=== PATIENT | male | born 1940 | race Caucasian/White ===

== ENCOUNTER 2019-07-16 10:40 | Inpatient (IN) | payer OTHER ==
--- NOTE | 2019-07-16 10:50 | ED ---
HPI Cardiac - HPI Summary HPI Summary: This patient is an 79 year old male brought in by EMS presenting to [facility] with a chief complaint of weakness. He reports intermittent chest pain, SOB, N/V, and chest congestion. He states his balance has been off. He denies any chest pain today. He states he's been non-compliant with his medications. He states he has had multiple deaths in the family and is currently having a difficult time dealing with this. He states he has not had an appetite. Pt denies any fever, chills, erythema of eyes, sore throat, cough, abdominal pain, dysuria, hematuria, myalgia, edema, rash, or dizziness. Aspirin 81 mg CHEW TAB* 81 mg PO DAILY 04/05/16 [History Confirmed 04/05/16] Cyanocobalamin TAB* [Vitamin B12 TAB*] 1,000 mcg PO DAILY 04/05/16 [History Confirmed 04/05/16] Metoprolol Succinate XL TAB* [Toprol XL TAB*] 1.5 tab PO DAILY 04/05/16 [ History Confirmed 04/05/16] Simvastatin [Zocor 40 MG (NF)] 40 mg PO BEDTIME 04/05/16 [History Confirmed 08/11] Spironolactone TAB* [Aldactone TAB 25 MG*] 25 mg PO DAILY 04/05/16 [History Confirmed 04/05/16] amLODIPine TAB* [Norvasc 5 mg TAB*] 10 mg PO DAILY 04/05/16 [History Confirmed 04/05/16] Docusate CAP* [Colace Cap*] 200 mg PO BID cap 04/07/16 [Rx] HYDROcodone/ACETAMIN 5-325 MG* [[place] 5-325 TAB*] 1 tab PO Q6H PRN #20 tab MDD 4 04/07/16 [Rx] Omeprazole CAP (NF) [Prilosec CAP* 20 MG] 20 mg PO DAILY #30 04/07/16 [Rx ] Ramipril CAP* [Altace CAP*] 10 mg PO DAILY #30 cap 04/07/16 [Rx] - History of Current Complaint Stated Complaint: WEAKNESS PER EMS Time Seen by Provider: 07/16/19 10:42 Hx Obtained From: Patient Onset/Duration: Started Days Ago Associated Signs and Symptoms: Positive: Chest Pain, Recent Stress, Weakness, Shortness of Breath, Nausea, Vomiting - Additional Pertinent History Primary Care Physician: [id number] - Allergy/Home Medications Allergies/Adverse Reactions: Allergies Allergy/AdvReac Type Severity Reaction Status Date / Time No Known Allergies Allergy Verified 04/05/16 04:17 Home Medications: Home Medications Atorvastatin Calcium [Lipitor] 80 mg PO DAILY 07/16/19 [History Confirmed ] Ipratropium Br (Nf)0.03% Nasal [Ipratropium [place]] 2 spray BOTH NARES BID [History Confirmed 07/16/19] Ramipril CAP* [Altace CAP*] 20 mg PO DAILY 07/16/19 [History Confirmed 07/16/19] Torsemide TAB* [Demadex*] 10 mg PO DAILY 07/16/19 [History Confirmed 07/16/19] PMH/Surg Hx/FS Hx/Imm Hx Cardiovascular History: Reports: Hx Congestive Heart Failure, Hx Hypertension Denies: Hx Pacemaker/ICD Respiratory History: Reports: Hx Chronic Obstructive Pulmonary Disease (COPD) History: Reports: Hx Kidney Stones, Other Problems/Disorders - Kidney stones Sensory History: Reports: Hx Contacts or Glasses Denies: Hx Hearing Aid Opthamlomology History: Reports: Hx Contacts or Glasses Psychiatric History: Denies: Hx Panic Disorder - Family History Known Family History: Negative: Seizure Disorder - Social History Alcohol Use: Occasionally Substance Use Type: Reports: None Smoking Status (MU): Former Smoker Type: Cigarettes Review of Systems Negative: Fever, Chills Negative: Erythema Negative: Sore Throat Positive: Chest Pain Positive: Shortness Of Breath. Negative: Cough Positive: Vomiting, Nausea. Negative: Abdominal Pain Negative: dysuria, hematuria Negative: Myalgia, Edema Negative: Rash Neurological: Other - Loss of balance Neg: Dizzness Positive: Weakness Positive: Depressed - Grief All Other Systems Reviewed And Are Negative: No Physical Exam - Summary Physical Exam Summary: Constitutional: Well-developed, Well-nourished, Alert. (-) Distressed Skin: Warm, Dry HENT: Normocephalic; Atraumatic Eyes: Conjunctiva normal Neck: Musculoskeletal ROM normal neck. (-) JVD, (-) Stridor, (-) Tracheal deviation Cardio: Rhythm regular, rate normal, Heart sounds normal; Intact distal pulses; The pedal pulses are 2+ and symmetric. Radial pulses are 2+ and symmetric. (-) Murmur Pulmonary/Chest wall: Effort normal. (-) Respiratory distress, (-) Wheezes, (-) Rales Abd: Soft, (-) tenderness, (-) Distension, (-) Guarding, (-) Rebound Musculoskeletal: (-) Edema Lymph: (-) Cervical adenopathy Neuro: Alert, Oriented x3, Strength normal, Cranial nerves II-XII are grossly intact. (-) Dysmetria, (-) Nystagmus, (-) Ataxia by finger to nose testing, (-) Sensory deficit. Psych: Mood and affect Normal Triage Information Reviewed: Yes Vital Signs On Initial Exam: Temp Pulse Resp BP Pulse Ox 97.8 F 93 16 112/84 94 07/16/19 10:42 07/16/19 10:49 07/16/19 10:42 07/16/19 10:42 07/16/19 10:49 Vital Signs Reviewed: Yes Diagnostics - Laboratory Result Diagrams: 07/16/19 11:10 07/16/19 11:10 Lab Statement: Any lab studies that have been ordered have been reviewed, and results considered in the medical decision making process. - Radiology CXR Radiology Interpretation Completed By: Radiologist Summary of Radiographic Findings: No active cardiopulmonary disease is noted. ED Provider has reviewed this report. - CT Brain CT Interpretation Completed By: Radiologist Summary of CT Findings: No evidence for acute intracranial abnormality. ED Provider has reviewed this report. - EKG 1041 Cardiac Rate: NL EKG Rhythm: Sinus Rhythm - 96 BPM Summary of EKG Findings: LBBB Disposition - Course Course Of Treatment: This patient is an 79 year old male presenting to [facility] with a chief complaint of weakness. First Troponin was 0.07. Sodium is 118 L, CO2 is 12L. Discussed possibility of posterior circulation stroke with the Hospitalist, but decided it is more likely the symptoms are caused by hyponatremia. Dr. Lara, Assistant Professor Of Chemistry, was in the operationing room so she could not answer her pager but she eventually accepted the patient for admission. This plan was discussed with the patient and he was agreeable with this plan. - Diagnoses Provider Diagnoses: Hyponatremia, Acute renal failure Discharge ED - Sign-Out/Discharge Documenting (check all that apply): Patient Departure - Admission Patient Received Moderate/Deep Sedation with Procedure: No - Discharge Plan Condition: Stable Disposition: ADMITTED TO [facility] Referrals: France Block MD [Primary Care Provider] - - Attestation Statements Document Initiated by Scribe: Yes Documenting Scribe: True Loom[place] Provider For Whom Scribe is Documenting (Include Credential): Ad Perez MD Scribe Attestation: True Osuna, scribed for Ad Perez MD on 07/16/19 at 1316. Status of Scribe Document: Ready
[2019-07-16 11:17] LABS: Hematocrit 41 % (42-52); Hemoglobin 13.7 g/dL (14.0-18.0); Mean Corpuscular HGB Conc 33 g/dL (31-36); Mean Corpuscular Hemoglobin 30 pg (27-31); Mean Corpuscular Volume 89 fL (80-94); Mean Platelet Volume 8.6 fL (7.4-10.4); Platelet Count 671 10^3/uL (150-450); Red Blood Count 4.64 10^6 /uL (4.18-5.48); Red Cell Distribution Width 15 % (10-15); White Blood Count 16.3 10^3/uL (3.5-10.8)
[2019-07-16 11:49] LABS: Troponin I 0.07 ng/mL (<0.04)
[2019-07-16 11:51] LABS: ALT 17 U/L (7-52); AST 12 U/L (13-39); Albumin 3.8 g/dL (3.2-5.2); Alkaline Phosphatase 130 U/L (34-104); Calcium 8.9 mg/dL (8.6-10.3); Chloride 89 mmol/L (101-111); EGFR African American 18.7 (>60); EGFR Non-African American 15.5 (>60); Globulin 3.7 g/dL (2-4); Glucose 180 mg/dL (70-100); Total Protein 7.5 g/dL (6.4-8.9)
[2019-07-16 11:53] LABS: Anion Gap 17 mmol/L (2-11); CO2 Carbon Dioxide 12 mmol/L (22-32); Potassium 5.2 mmol/L (3.5-5.0); Sodium 118 mmol/L (135-145)
[2019-07-16 11:55] LABS: ABS Lymphocytes 0.6 10^3/ul (1.0-4.8); ABS Neutrophils 14.7 10^3/ul (1.5-7.7); Eosinophil % 0.3 %; Lymphocyte % 3.6 %
[2019-07-16] MEDS ORDERED: NS 0.9% 250 ML* 250 ML IV ONE (12:04)
[2019-07-16 12:09] LABS: Blood Urea Nitrogen 159 mg/dL (6-24)
[2019-07-16] MEDS ORDERED: Ondansetron INJ* 2 MG/ML VIAL IV ONE ×2 (13:28→16:00)
[2019-07-16] MEDS ORDERED: Ondansetron ODT TAB* 4 MG PO PRN (13:34)
[2019-07-16] MEDS ORDERED: NS 0.9% 1000 ML** 1,000 ML IV SCH ×2 (13:45)
[2019-07-16 14:24] LABS: Chloride 91 mmol/L (101-111); EGFR African American 20.2 (>60); EGFR Non-African American 16.7 (>60); Glucose 172 mg/dL (70-100)
[2019-07-16 14:30] LABS: Anion Gap 18 mmol/L (2-11); CO2 Carbon Dioxide 10 mmol/L (22-32); Sodium 119 mmol/L (135-145)
[2019-07-16 14:31] LABS: Troponin I 0.08 ng/mL (<0.04)
[2019-07-16 14:41] LABS: BUN/Creatinine Ratio 42.8 (8-20); Blood Urea Nitrogen 152 mg/dL (6-24)
[2019-07-16] MEDS ORDERED: Ondansetron INJ* 2 MG/ML VIAL ONE (14:46)
[2019-07-16 15:07] LABS: Urine Appearance Turbid; Urine Bacteria 3+ (Absent); Urine Bilirubin Negative (Negative); Urine Blood 3+ (Negative); Urine Color Yellow; Urine Glucose Negative (Negative); Urine Ketones Trace (Negative); Urine Nitrite Negative (Negative); Urine Protein 2+(100 mg/dL) (Negative); Urine Red Blood Cell 3+(>10/hpf) (Absent); Urine Specific Gravity 1.013 (1.010-1.030); Urine Urobilinogen Negative (Negative); Urine White Blood Cell 3+(>20/hpf) (Absent)
[2019-07-16 15:15] LABS: Calcium 8.6 mg/dL (8.6-10.3); EGFR African American 20.8 (>60); EGFR Non-African American 17.2 (>60)
[2019-07-16] MEDS: Famotidine IV* 10 MG/ML 2 ML (20 mg) IVPB SCH (15:30)
[2019-07-16] MEDS: Heparin VIAL(*) 5000 UNITS/ML VIAL (FIVE THOUSAND) SUBCUT SCH ×2 (15:30→20:07)
[2019-07-16] MEDS ORDERED: PROCHLORPERAZINE INJ 5 MG/ML 2 ML VIAL IV PRN (15:42)
[2019-07-16] MEDS ORDERED: PROCHLORPERAZINE INJ 5 MG/ML 2 ML VIAL ONE (15:47)
[2019-07-16 15:58] LABS: Potassium 5.3 mmol/L (3.5-5.0)
[2019-07-16] MEDS ORDERED: Pneumococcal *Vac Polyvalent 0.5 ML VIAL IM ONE (16:00)
--- NOTE | 2019-07-16 16:17 | HP ---
HISTORY AND PHYSICAL: DATE OF ADMISSION: 07/16/19 PRIMARY CARE PHYSICIAN: Dr. France Block. CHIEF COMPLAINT: Generalized weakness. HISTORY OF PRESENT ILLNESS: The patient is an 79-year-old male with history of severe systolic heart failure, prostate cancer, GERD, COPD, hypertension, diabetes, dyslipidemia. The patient was brought in by EMS for evaluation of generalized weakness. The patient also complaining of nausea, vomiting. He has intermittent shortness of breath, chest pain. The patient denies headaches , blurry vision, loss of weight. He reports poor appetite. The patient reports 3 deaths in his family recently. The patient reports being depressed. The patient has not been eating or drinking. The patient has been having difficult time dealing with the family deaths. He denied fevers, chills, erythema of the eyes, urinary complaints, sore throat, cough, abdominal pain, urinary complaints, myalgias, lower extremity edema, swollen lymph nodes, rash. The patient was found to have significantly low sodium on admission. His sodium was found to be around 118. He also was found to be in acute on chronic renal failure. The patient's BUN was 159 with creatinine of 3.79 with anion gap of 17. His glucose was also elevated at 180. He was found to have elevated white count of 16.3 with some left shift. However, lactate is within normal limits. His blood pressure is around 119/73. He is slightly tachycardic at 91, O2 sat was 98% on 2 L. The patient was being admitted to ICU for hypercapnia and acute on chronic renal failure. PAST MEDICAL HISTORY: 1. Systolic CHF with ejection fraction less than 20. 2. Prostate cancer, low [place] score, watchful waiting. 3. GERD. 4. COPD, quit smoking in 1989. 5. History of kidney stones. 6. Hypertension. 7. Diabetes. 8. Dyslipidemia. PAST SURGICAL HISTORY: 1. Prostate biopsy. 2. Cardiac catheterization. MEDICATIONS AT HOME: 1. Omeprazole 20 mg daily. 2. [place] 1 tablet q.6 hours p.r.n. 3. Vitamin B12 of 1000 mcg daily. 4. Spironolactone 25 mg p.o. daily. 5. Ramipril 20 mg p.o. daily. 6. Metoprolol 37.5 mg 1 tablet daily. 7. Torsemide 10 mg p.o. daily. 8. Aspirin 81 mg p.o. daily. 9. Amlodipine 10 mg p.o. daily. 10. Atorvastatin 80 mg p.o. daily. 11. Ipratropium nasal spray 2 sprays into both nostrils twice daily. ALLERGIES: No known drug allergies. FAMILY HISTORY: Noncontributory to current complaint. SOCIAL HISTORY: The patient is former smoker. No alcohol or drug abuse. REVIEW OF SYSTEMS: All 14 systems reviewed and as per HPI. PHYSICAL EXAMINATION GENERAL: The patient is a thin male, appearing depressed, in no apparent distress, lying in ED bed quietly, intermittent coughing and spitting out sputum. VITAL SIGNS: Temperature 97.8, pulse 91 beats per minute, respiratory rate 16 per minute, O2 sat 98% on 2 L, blood pressure 119/73. HEENT: Pupils equal, reactive to light. Mucous membranes moist. LUNGS: Diminished air entry bilaterally. No wheeze. CARDIOVASCULAR: S1, S2 present, tachycardic. ABDOMEN: Soft, nontender, nondistended. Bowel sounds diminished. EXTREMITIES: Normal range of motion. No edema. NEUROLOGIC: Alert, awake, oriented x3. No focal deficits, the patient appears depressed. Denies suicidal or homicidal ideation. SKIN: No rash or bruises. DIAGNOSTIC STUDIES/LAB DATA: WBC count 16.3, hemoglobin 13.7, hematocrit 41, platelet count 671. Sodium 118, potassium 5.2, chloride 89, bicarb 12, anion gap 17. BUN 159, creatinine 3.79. Troponin elevated at 0.07. Alk phos 130, AST 12 , ALT 17, vitamin B12 of 1358, lactate 1.5. CT of the brain showed no evidence of acute intracranial abnormality. Chest x-ray was personally reviewed by me - no obvious airspace opacities. EKG was reviewed - sinus rhythm with possible left bundle branch block. ASSESSMENT AND PLAN: 79-year-old male with a history of severe systolic congestive heart failure, hypertension, diabetes, gastroesophageal reflux disease, chronic obstructive pulmonary disease, admitted with weakness, was found to be having severe renal failure and hyponatremia. 1. Hyponatremia/acute on chronic renal failure, likely secondary to dehydration. The patient is depressed over of family members, has not been eating or drinking at home. The patient with significantly elevated BUN and creatinine. The patient received 250 cc of normal saline bolus. Will continue with normal saline at 150 cc with close monitoring of cardiac status given severe systolic congestive heart failure. The patient is severely hydrated and is in need of fluids. He was taking diuretics and was not eating or drinking. I think he has hypovolemic hyponatremia. Metabolic acidosis also secondary to renal failure with elevated anion gap. Lactate within normal limits. Monitor BNP q.4 hours. 2. Leukocytosis, likely secondary to severe dehydration, do not suspect infection. Lactate within normal limits. The patient is hemodynamically stable. 3. Elevated alk phos. The patient with history of elevated LFTs in the past. He had history of gallstones, underwent ERCP in the past. 4. Cardiac. The patient with history of systolic heart failure, also with history of hypertension. He has declined AICD in the past. We will continue with his cardiac medications. 5. Diabetes. The patient with slightly elevated blood sugars. We will monitor glucose closely. We will start the patient on sliding scale insulin. 6. Nausea and vomiting. The patient with significant nausea and spitting out small amounts of mucous. We will start the patient on Zofran. We will also order PPI. The patient denied any abdominal pain. No tenderness on palpation. I do not think he is having any acute abdomen at this time. 7. DVT prophylaxis. TIME SPENT: Total time spent doing history and physical is 60 minutes, most of which was spent [id number] with the patient. [id number]/[facility] #: [id number] LESIA
[2019-07-16 16:37] LABS: BUN/Creatinine Ratio 43.4 (8-20)
[2019-07-16] MEDS ORDERED: Metoclopramide IV* 5 MG/ML 2 ML VIAL ONE (17:09)
[2019-07-16] MEDS ORDERED: Metoclopramide IV* 5 MG/ML 2 ML VIAL IV PRN (17:13)
[2019-07-16] MEDS: Scopolamine 1.5 mg* PATCH TRANSDERM SCH (17:17)
[2019-07-16] MEDS: Acetaminophen TAB* 325 MG PO PRN (17:19)
[2019-07-16] MEDS: cefTRIAXone(*) 1 GM in NS 0.9% 50 ML* 50 ML IVPB SCH (18:17)
[2019-07-16 19:46] LABS: Calcium 8.9 mg/dL (8.6-10.3); EGFR African American 21.2 (>60); EGFR Non-African American 17.5 (>60); Magnesium 2.6 mg/dL (1.9-2.7)
[2019-07-16 19:51] LABS: Potassium 5.1 mmol/L (3.5-5.0); Troponin I 0.09 ng/mL (<0.04)
[2019-07-16] MEDS ORDERED: Sodium Bicarbonate 8.4%* 50 ML SYRINGE IV ONE (19:55)
[2019-07-16] MEDS ORDERED: Lidocaine 4% GEL* 10 GM TUBE TOPICAL ONE (19:56)
[2019-07-16 20:02] LABS: BUN/Creatinine Ratio 43.8 (8-20)
[2019-07-16] MEDS: Ondansetron INJ* 2 MG/ML VIAL IV PRN (20:17)
[2019-07-16 23:53] LABS: Calcium 8.2 mg/dL (8.6-10.3); EGFR African American 22.1 (>60); EGFR Non-African American 18.3 (>60); Potassium 4.8 mmol/L (3.5-5.0)
[2019-07-17] MEDS ORDERED: Sodium Bicarbonate 8.4% IV* 50 ML VIAL IV ONE (00:09)
[2019-07-17] MEDS: NS 0.45% 1000 ML BAG* 1,000 ML IV SCH ×2 (00:29→04:27)
[2019-07-17 01:26] LABS: BUN/Creatinine Ratio 45.4 (8-20)
[2019-07-17] MEDS ORDERED: NS 0.45% 1000 ML BAG* 1,000 ML IV SCH (02:00)
[2019-07-17 04:18] LABS: ABS Basophils 0.1 10^3/ul (0-0.2); ABS Lymphocytes 0.6 10^3/ul (1.0-4.8); ABS Monocytes 1.3 10^3/ul (0-0.8); Eosinophil % 0.3 %; Hematocrit 34 % (42-52); Hemoglobin 11.5 g/dL (14.0-18.0); Lymphocyte % 4.3 %; Mean Corpuscular HGB Conc 34 g/dL (31-36); Mean Corpuscular Hemoglobin 30 pg (27-31); Mean Corpuscular Volume 88 fL (80-94); Mean Platelet Volume 8.7 fL (7.4-10.4); Platelet Count 532 10^3/uL (150-450); Red Cell Distribution Width 15 % (10-15)
[2019-07-17 04:30] LABS: Calcium 7.9 mg/dL (8.6-10.3); EGFR African American 23.3 (>60); EGFR Non-African American 19.3 (>60); Magnesium 2.5 mg/dL (1.9-2.7); Potassium 4.3 mmol/L (3.5-5.0)
[2019-07-17 04:52] LABS: BUN/Creatinine Ratio 44.4 (8-20)
[2019-07-17] MEDS ORDERED: NS 0.45% 1000 ML BAG* 1,000 ML IV ONE (05:00)
[2019-07-17] MEDS ORDERED: Adenosine* 3 MG/ML VIAL IV PUSH ONE ×2 (05:40→06:01)
[2019-07-17] MEDS ORDERED: Adenosine* 3 MG/ML VIAL ONE ×2 (05:44→05:47)
[2019-07-17 05:47] LABS: Phosphorus 5.9 mg/dL (2.5-5.0)
[2019-07-17] MEDS ORDERED: Digoxin IV* 0.5 MG/2 ML AMP (0.25 MG/ML) IV SLOW PU ONE (06:07)
[2019-07-17] MEDS ORDERED: Digoxin IV* 0.5 MG/2 ML AMP (0.25 MG/ML) ONE (06:09)
--- NOTE | 2019-07-17 06:13 | PN ---
Hospitalist Progress Note Date of Service: 07/17/19 Noted to have hyponatremia titrated fluids to control rate of correction. Noted to have persistent tachycardia suspected SVT with LBBB. Patient denies any chest pain on evaluation. Tried Adenosine 6 and 12 mg with EKG post use which showed underlying rhythm to be A. Fib. Given low BP unable to give rate control with cardizem/metoprolol. Will give digoxin 0.5mg, get ECHO, Consult cardiology.
[2019-07-17] MEDS: Heparin VIAL(*) 5000 UNITS/ML VIAL (FIVE THOUSAND) SUBCUT SCH ×3 (06:40→21:12)
[2019-07-17] MEDS: Famotidine IV* 10 MG/ML 2 ML (20 mg) IVPB SCH (08:00)
--- NOTE | 2019-07-17 08:42 | CONSULT ---
Subjective Date of Service: 07/17/19 Interval History: Admission Date: 07/16/19 Consult date 07/17/2019 PCP: Dr. Block Provider: Crawler Tractor Operator CC: Weakness Reason for consult: Episode of paroxysmal atrial fibrillation. HISTORY OF PRESENT ILLNESS: The patient is an 79-year-old man with a history as below. He was admitted with generalized weakness, nausea, vomiting and poor appetite with depression after multiple family deaths. He had complaints of dyspnea and chest pain on H+P but denied these symptoms to me. He was found with KALLIE, respiratory failure and electrolyte abnormalities (including hyponatremia in setting of AceI and loop diuretic) felt to be related to volume depletion. Overnight he went into rapid atrial fibrillation. His BP has been low. He felt symptoms of anxious fluttering in his abdomen. He states he has never had that symptom previously. He was given adenosine and digoxin IV. He converted to sinus rhythm. He no longer has that symptom. PAST MEDICAL HISTORY: 1. Severe NICM, LBBB, has declined BiV-ICD in the past, has seen Dr. Chavis previously last time 2015 2. Prostate cancer 3. GERD. 4. COPD, quit smoking in 1989. 5. History of kidney stones. 6. Hypertension. 7. Diabetes. 8. Dyslipidemia. PAST SURGICAL HISTORY: 1. Prostate biopsy. 2. Cardiac catheterization. FH: Father: due to Parkinsons Disease - (age 85 Years) CVA (60s). SH: Smoking: Patient is a former smoker - Quit 20 yrs ago.C Alcohol: Occasionally consumes alcohol - No drugs allergies: Nkda Medications Active Medications: Acetaminophen (Tylenol Tab*) 650 mg PO Q4H PRN PRN Reason: PAIN - MILD Last Admin: 07/16/19 17:19 Dose: 650 mg Famotidine (Pepcid Iv*) 20 mg IVPB DAILY [facility] Last Admin: 07/17/19 08:00 Dose: 20 mg Heparin Sodium (Porcine) (Heparin Vial(*)) 5,000 units SUBCUT Q8HR [facility] Last Admin: 07/17/19 06:40 Dose: 5,000 units Ceftriaxone Sodium 1 gm/ (Sodium Chloride) 50 mls @ 100 mls/hr IVPB Q24H [facility] Last Admin: 07/16/19 18:17 Dose: 100 mls/hr Sodium Chloride (Ns 0.45% 1000 Ml Bag*) 1,000 mls @ 150 mls/hr IV PER RATE [facility] Last Admin: 07/17/19 04:27 Dose: 150 mls/hr Metoclopramide HCl (Reglan Iv*) 5 mg IV Q6H PRN PRN Reason: NAUSEA Ondansetron HCl (Zofran Inj*) 4 mg IV Q6H PRN PRN Reason: NAUSEA Last Admin: 07/16/19 20:17 Dose: 4 mg Pharmacy Profile Note (Scopolamine Patch Remove*) 1 note PATCH OFF Q72H [facility] Prochlorperazine Edisylate (Compazine Inj*) 10 mg IV Q6H PRN PRN Reason: NAUSEA/VOMITING Last Admin: 07/16/19 16:10 Dose: 10 mg Scopolamine (Transderm-Scop 1.5 Mg Patch*) 1 patch TRANSDERM Q72H [facility] Last Admin: 07/16/19 17:17 Dose: 1 patch Home Medications: Aspirin 81 mg CHEW TAB* 81 mg PO DAILY 04/05/16 [History Confirmed 07/16/19] Cyanocobalamin TAB* [Vitamin B12 TAB*] 1,000 mcg PO DAILY 04/05/16 [History Confirmed 07/16/19] Metoprolol Succinate XL TAB* [Toprol XL TAB*] 37.5 mg PO DAILY 04/05/16 [ History Confirmed 07/16/19] Spironolactone TAB* [Aldactone TAB 25 MG*] 25 mg PO DAILY 04/05/16 [History Confirmed 07/16/19] amLODIPine TAB* [Norvasc 5 mg TAB*] 10 mg PO DAILY 04/05/16 [History Confirmed 07/16/19] HYDROcodone/ACETAMIN 5-325 MG* [[place] 5-325 TAB*] 1 tab PO Q6H PRN #20 tab MDD 2 04/07/16 [Rx Confirmed 07/16/19] Omeprazole CAP (NF) [Prilosec CAP* 20 MG] 20 mg PO DAILY #30 04/07/16 [ Rx Confirmed 07/16/19] Atorvastatin Calcium [Lipitor] 80 mg PO DAILY 07/16/19 [History Confirmed ] Ipratropium Br (Nf)0.03% Nasal [Ipratropium [place]] 2 spray BOTH NARES BID [History Confirmed 07/16/19] Ramipril CAP* [Altace CAP*] 20 mg PO DAILY 07/16/19 [History Confirmed 07/16/19] Torsemide TAB* [Demadex*] 10 mg PO DAILY 07/16/19 [History Confirmed 07/16/19] Review of Systems - Measurements Intake and Output: Intake and Output Last 24 Hours 07/15/19 07/16/19 07/17/19 07/18/19 06:59 06:59 06:59 06:59 Intake Total 3007 Output Total 1975 118 Balance 1032 -118 Weight 139 lb 5.314 oz Intake: IV Fluids 2954 NS (0.9%) 2954 IVPB 53 NS (0.9%) 53 Output: Maurer 1925 118 Emesis 50 Other: Date of Last Bowel 07/16/19 Movement # Bowel Movements 1 Estimated Stool Amount Small - Review of Systems Constitutional Symptoms: Positive: Weakness, Fatigue Dermatology: Negative: Rash, Skin Lesions HEENT: Negative: Change in Hearing, Vertigo Eyes: Negative: Change in Vision, Double Vision Thyroid: Negative: Weight Loss, Weight Gain Pulmonary: Negative: Cough, Sputum, Hemoptysis Cardiology: Negative: Edema, Syncope Gastroenterology: Negative: Blood in Stools, Haematemesis, Melena Genital - Urinary: Negative: Dysuria, Hematuria Musculoskeletal: Negative: Joint Pain, Joint Stiffness Endocrinology: Negative: Polydipsia, Polyuria, Gynecomastia Hematologic/Lymphatic: Positive: Use of Antiplatelet Drugs Negative: Use of Anticoagulant Neurology: Negative: Hx of Stroke\TIA, Hx Seizures Psychiatry: Positive: Depression, Unusual Fatigue Allergic/Immunologic: Negative: Hx HIV, Immunocompromise Review of Systems Statement: All other review of systems negative, unless stated above. Objective Vital Signs: Temp Pulse Resp BP Pulse Ox 99.1 F 100 17 94/64 97 07/17/19 08:00 07/17/19 08:00 07/17/19 08:00 07/17/19 08:00 07/17/19 08:00 Oxygen Devices in Use Now: None Appearance: not toxic appearing, nad Ears/Nose/Mouth/Throat: Clear Oropharnyx, Mucous Membranes Moist Neck: Trachea Midline Respiratory: Symmetrical Chest Expansion and Respiratory Effort, Clear to Auscultation Cardiovascular: RRR, No Edema, - - uncertain jvp Abdominal: NL Sounds; No Tenderness; No Distention Extremities: No Edema Skin: No Rash or Ulcers Neurological: Alert and Oriented x 3 Laboratory Results: 07/17/19 04:04 07/17/19 04:04 Total Bilirubin 0.50 mg/dL (0.2-1.0) 07/16/19 11:10 AST 12 U/L (13-39) L 07/16/19 11:10 ALT 17 U/L (7-52) 07/16/19 11:10 Alkaline Phosphatase 130 U/L (34-104) H 07/16/19 11:10 B-Natriuretic Peptide 281 pg/mL (<=100) H 07/16/19 11:03 Total Protein 7.5 g/dL (6.4-8.9) 07/16/19 11:10 Albumin 3.8 g/dL (3.2-5.2) 07/16/19 11:10 Globulin 3.7 g/dL (2-4) 07/16/19 11:10 Albumin/Globulin Ratio 1.0 (1-3) 07/16/19 11:10 TSH 0.49 mcIU/mL (0.34-5.60) 07/16/19 14:39 07/16/19 07/16/19 07/16/19 11:10 13:59 19:20 Troponin I 0.07 H* 0.08 H* 0.09 H* Diagnostic Imaging: Echocardiogram - (08/20/2010) Severe LV dysfunction EF 15% Mild MR Trace TR Est PASP 35 mmHg Cardiac Catheterization - (01/09/2004) normal coronary arteries LVEF 10% in /; Exam Date: 07/16/19 IMPRESSION: NO ACTIVE CARDIOPULMONARY DISEASE IS NOTED. EKG Data: ekg admission: NSR, LBBB PVC ekg overnight rapid afib 160 bpm lbbb ekg this AM NSr 97 bpm, LBBB pvc's Assessment/Plan 1. Paroxysmal atrial fibrillation - Provoked 2. NICM/systolic HF - chronic 3. LBBB - QRS > 150 ms 4. Symptomatic dehydration and KALLIE - In setting of poor appetite with depression and AceI/loop diuretic use - I do not think needs anticoagulation for this one symptomatic provoked episode without previous symptoms - Restart patients metoprolol at 25 mg po daily to help prevent rebound (ordered ) - If rapid atrial fibrillation recurrs and BP is normal can use an IV amiodarone infusion to attempt chemical cardioversion - Can restart patients other heart failure medications when appropriate. If BP remains low does not need norvasc Thank you for allowing me to participate in the cardiovascular care of this patient. Please do not hesitate to contact me with questions or concerns.
[2019-07-17 08:58] LABS: Anion Gap 13 mmol/L (2-11); BUN/Creatinine Ratio 41.7 (8-20); Blood Urea Nitrogen 128 mg/dL (6-24); CO2 Carbon Dioxide 18 mmol/L (22-32); Calcium 7.8 mg/dL (8.6-10.3); Chloride 99 mmol/L (101-111); EGFR African American 23.8 (>60); EGFR Non-African American 19.7 (>60); Glucose 142 mg/dL (70-100); Potassium 4.7 mmol/L (3.5-5.0); Sodium 130 mmol/L (135-145)
[2019-07-17] MEDS: Metoprolol Succinate XL TAB* 25 MG PO SCH (09:28)
[2019-07-17] MEDS: Lactated Ringers 1000 ML Bag* 1,000 ML IV SCH (09:49)
[2019-07-17 09:51] LABS: Troponin I 0.16 ng/mL (<0.04)
--- NOTE | 2019-07-17 11:13 | PN ---
Date of Service: 07/17/19 - [facility] note Critical Care Services: Pt seen and examined at bedside. Pt reports improvement in nausea. Reports feeling tired. Active Medications Generic Name Dose Route Start Last Admin Trade Name Freq PRN Reason Stop Dose Admin Acetaminophen 650 mg 07/16/19 17:03 07/16/19 17:19 Tylenol Tab* PO 650 mg Q4H PRN Administration PAIN - MILD Famotidine 20 mg 07/16/19 15:00 07/17/19 08:00 Pepcid Iv* IVPB 20 mg DAILY YAMILETH Administration Heparin Sodium (Porcine) 5,000 units 07/16/19 14:00 07/17/19 06:40 Heparin Vial(*) SUBCUT 5,000 units Q8HR YAMILETH Administration Ceftriaxone Sodium 1 gm/ 50 mls @ 100 mls/hr 07/16/19 18:00 07/16/19 18:17 Sodium Chloride IVPB 100 mls/hr Q24H YAMILETH Administration Lactated Ringer's 1,000 mls @ 50 mls/hr 07/17/19 10:00 07/17/19 09:49 Lactated Ringers 1000 Ml Bag* IV 50 mls/hr PER RATE YAMILETH Administration Metoprolol Succinate 25 mg 07/17/19 10:00 07/17/19 09:28 Toprol Xl Tab* PO 25 mg DAILY YAMILETH Administration Ondansetron HCl 4 mg 07/16/19 15:46 07/16/19 20:17 Zofran Inj* IV 4 mg Q6H PRN Administration NAUSEA Pharmacy Profile Note 1 note 07/19/19 18:00 Scopolamine Patch Remove* PATCH OFF Q72H YAMILETH Scopolamine 1 patch 07/16/19 18:00 07/16/19 17:17 Transderm-Scop 1.5 Mg Patch* TRANSDERM 1 patch Q72H YAMILETH Administration Vital Signs: Temp Pulse Resp BP SpO2 FiO2 98.2 F 67 18 110/52 98 07/17/19 10:00 07/17/19 10:00 07/17/19 10:00 07/17/19 10:00 07/17/19 10:00 Physical Exam: Gen: Pt in NAD HEENT: PERRLA, no JVD Lungs: Good a/e b/l , no wheeze Cardiac: S1, S2+ Abdomen: Soft, BS+ Extremities: Normal ROM Neuro: Alert,awake, no focal deficits Skin: No rash Fluid Balance (Past 24 Hours): I= 726 O= 368 Net 358 Intake & Output 07/15/19 07/16/19 07/17/19 07/18/19 06:59 06:59 06:59 06:59 Intake Total 3007 726 Output Total 1975 368 Balance 1032 358 Weight 139 lb 5.314 oz Intake: IV Fluids 2954 726 NS (0.45%) 726 NS (0.9%) 2954 IVPB 53 NS (0.9%) 53 Output: Maurer 1925 368 Emesis 50 Other: Date of Last Bowel 07/16/19 Movement # Bowel Movements 1 Estimated Stool Amount Small Labs: Laboratory Results - last 24 hr 07/16/19 07/16/19 07/16/19 11:03 11:10 11:10 WBC 16.3 H RBC 4.64 Hgb 13.7 L Hct 41 L MCV 89 MCH 30 MCHC 33 RDW 15 Plt Count 671 H MPV 8.6 Neut % (Auto) 90.2 Lymph % (Auto) 3.6 Bertie % (Auto) 5.9 Eos % (Auto) 0.3 Baso % (Auto) 0.0 Absolute Neuts (auto) 14.7 H Absolute Lymphs (auto) 0.6 L Absolute Monos (auto) 1.0 H Absolute Eos (auto) 0.0 Absolute Basos (auto) 0.0 Absolute Nucleated RBC 0.0 Nucleated RBC % 0.0 ABG pH ABG pCO2 ABG pO2 ABG HCO3 ABG O2 Saturation ABG Base Excess Sodium 118 L* Potassium 5.2 H Chloride 89 L Carbon Dioxide 12 L* Anion Gap 17 H BUN 159 H Creatinine 3.79 H Est GFR ( Amer) 18.7 Est GFR (Non-Af Amer) 15.5 BUN/Creatinine Ratio 42.0 H Glucose 180 H POC Glucose (mg/dL) Serum Osmolality Lactic Acid Calcium 8.9 Phosphorus Magnesium Total Bilirubin 0.50 AST 12 L ALT 17 Alkaline Phosphatase 130 H Troponin I 0.07 H* B-Natriuretic Peptide 281 H Total Protein 7.5 Albumin 3.8 Globulin 3.7 Albumin/Globulin Ratio 1.0 Vitamin B12 1358 H TSH Urine Color Urine Appearance Urine pH Ur Specific [place] Urine Protein Urine Ketones Urine Blood Urine Nitrate Urine Bilirubin Urine Urobilinogen Ur Leukocyte Esterase Urine WBC (Auto) Urine RBC (Auto) Urine Bacteria Urine Glucose 07/16/19 07/16/19 07/16/19 11:10 13:59 14:39 WBC RBC Hgb Hct MCV MCH MCHC RDW Plt Count MPV Neut % (Auto) Lymph % (Auto) Bertie % (Auto) Eos % (Auto) Baso % (Auto) Absolute Neuts (auto) Absolute Lymphs (auto) Absolute Monos (auto) Absolute Eos (auto) Absolute Basos (auto) Absolute Nucleated RBC Nucleated RBC % ABG pH ABG pCO2 ABG pO2 ABG HCO3 ABG O2 Saturation ABG Base Excess Sodium 119 L* 121 L Potassium 5.0 5.3 H Chloride 91 L 93 L Carbon Dioxide 10 L* 13 L* Anion Gap 18 H 15 H BUN 152 H 150 H Creatinine 3.55 H 3.46 H Est GFR ( Amer) 20.2 20.8 Est GFR (Non-Af Amer) 16.7 17.2 BUN/Creatinine Ratio 42.8 H 43.4 H Glucose 172 H 182 H POC Glucose (mg/dL) Serum Osmolality Lactic Acid 1.5 Calcium 9.0 8.6 Phosphorus Magnesium Total Bilirubin AST ALT Alkaline Phosphatase Troponin I 0.08 H* B-Natriuretic Peptide Total Protein Albumin Globulin Albumin/Globulin Ratio Vitamin B12 TSH Urine Color Urine Appearance Urine pH Ur Specific [place] Urine Protein Urine Ketones Urine Blood Urine Nitrate Urine Bilirubin Urine Urobilinogen Ur Leukocyte Esterase Urine WBC (Auto) Urine RBC (Auto) Urine Bacteria Urine Glucose 07/16/19 07/16/19 07/16/19 14:39 14:39 14:39 WBC RBC Hgb Hct MCV MCH MCHC RDW Plt Count MPV Neut % (Auto) Lymph % (Auto) Bertie % (Auto) Eos % (Auto) Baso % (Auto) Absolute Neuts (auto) Absolute Lymphs (auto) Absolute Monos (auto) Absolute Eos (auto) Absolute Basos (auto) Absolute Nucleated RBC Nucleated RBC % ABG pH ABG pCO2 ABG pO2 ABG HCO3 ABG O2 Saturation ABG Base Excess Sodium Potassium Chloride Carbon Dioxide Anion Gap BUN Creatinine Est GFR ( Amer) Est GFR (Non-Af Amer) BUN/Creatinine Ratio Glucose POC Glucose (mg/dL) Serum Osmolality 324 H Lactic Acid Calcium Phosphorus Magnesium Total Bilirubin AST ALT Alkaline Phosphatase Troponin I B-Natriuretic Peptide Total Protein Albumin Globulin Albumin/Globulin Ratio Vitamin B12 TSH 0.49 Urine Color Yellow Urine Appearance Turbid Urine pH 5.0 Ur Specific [place] 1.013 Urine Protein 2+(100 mg/dl) A Urine Ketones Trace A Urine Blood 3+ A Urine Nitrate Negative Urine Bilirubin Negative Urine Urobilinogen Negative Ur Leukocyte Esterase 2+ A Urine WBC (Auto) 3+(>20/hpf) A Urine RBC (Auto) 3+(>10/hpf) A Urine Bacteria 3+ A Urine Glucose Negative 07/16/19 07/16/19 07/16/19 18:27 19:20 21:24 WBC RBC Hgb Hct MCV MCH MCHC RDW Plt Count MPV Neut % (Auto) Lymph % (Auto) Bertie % (Auto) Eos % (Auto) Baso % (Auto) Absolute Neuts (auto) Absolute Lymphs (auto) Absolute Monos (auto) Absolute Eos (auto) Absolute Basos (auto) Absolute Nucleated RBC Nucleated RBC % ABG pH 7.32 L ABG pCO2 22 L ABG pO2 110 H ABG HCO3 15.0 L ABG O2 Saturation 100.0 H ABG Base Excess -12.7 L Sodium 122 L Potassium 5.1 H Chloride 93 L Carbon Dioxide 9 L* Anion Gap 20 H BUN 149 H Creatinine 3.40 H Est GFR ( Amer) 21.2 Est GFR (Non-Af Amer) 17.5 BUN/Creatinine Ratio 43.8 H Glucose 187 H POC Glucose (mg/dL) 194 H Serum Osmolality Lactic Acid Calcium 8.9 Phosphorus Magnesium 2.6 Total Bilirubin AST ALT Alkaline Phosphatase Troponin I 0.09 H* B-Natriuretic Peptide Total Protein Albumin Globulin Albumin/Globulin Ratio Vitamin B12 TSH Urine Color Urine Appearance Urine pH Ur Specific [place] Urine Protein Urine Ketones Urine Blood Urine Nitrate Urine Bilirubin Urine Urobilinogen Ur Leukocyte Esterase Urine WBC (Auto) Urine RBC (Auto) Urine Bacteria Urine Glucose 07/16/19 07/17/19 07/17/19 23:28 00:26 04:04 WBC RBC Hgb Hct MCV MCH MCHC RDW Plt Count MPV Neut % (Auto) Lymph % (Auto) Bertie % (Auto) Eos % (Auto) Baso % (Auto) Absolute Neuts (auto) Absolute Lymphs (auto) Absolute Monos (auto) Absolute Eos (auto) Absolute Basos (auto) Absolute Nucleated RBC Nucleated RBC % ABG pH ABG pCO2 ABG pO2 ABG HCO3 ABG O2 Saturation ABG Base Excess Sodium 126 L 130 L Potassium 4.8 4.3 Chloride 97 L 98 L Carbon Dioxide 14 L* 17 L Anion Gap 15 H 15 H BUN 149 H 139 H Creatinine 3.28 H 3.13 H Est GFR ( Amer) 22.1 23.3 Est GFR (Non-Af Amer) 18.3 19.3 BUN/Creatinine Ratio 45.4 H 44.4 H Glucose 169 H 140 H POC Glucose (mg/dL) 184 H Serum Osmolality Lactic Acid Calcium 8.2 L 7.9 L Phosphorus 5.9 H Magnesium 2.5 Total Bilirubin AST ALT Alkaline Phosphatase Troponin I B-Natriuretic Peptide Total Protein Albumin Globulin Albumin/Globulin Ratio Vitamin B12 TSH Urine Color Urine Appearance Urine pH Ur Specific [place] Urine Protein Urine Ketones Urine Blood Urine Nitrate Urine Bilirubin Urine Urobilinogen Ur Leukocyte Esterase Urine WBC (Auto) Urine RBC (Auto) Urine Bacteria Urine Glucose 07/17/19 07/17/19 07/17/19 04:04 05:41 08:24 WBC 13.0 H RBC 3.90 L Hgb 11.5 L Hct 34 L MCV 88 MCH 30 MCHC 34 RDW 15 Plt Count 532 H D MPV 8.7 Neut % (Auto) 84.7 Lymph % (Auto) 4.3 Bertie % (Auto) 10.3 Eos % (Auto) 0.3 Baso % (Auto) 0.4 Absolute Neuts (auto) 11.0 H Absolute Lymphs (auto) 0.6 L Absolute Monos (auto) 1.3 H Absolute Eos (auto) 0.0 Absolute Basos (auto) 0.1 Absolute Nucleated RBC 0.0 Nucleated RBC % 0.0 ABG pH ABG pCO2 ABG pO2 ABG HCO3 ABG O2 Saturation ABG Base Excess Sodium 130 L Potassium 4.7 Chloride 99 L Carbon Dioxide 18 L Anion Gap 13 H BUN 128 H Creatinine 3.07 H Est GFR ( Amer) 23.8 Est GFR (Non-Af Amer) 19.7 BUN/Creatinine Ratio 41.7 H Glucose 142 H POC Glucose (mg/dL) 147 H Serum Osmolality Lactic Acid Calcium 7.8 L Phosphorus Magnesium Total Bilirubin AST ALT Alkaline Phosphatase Troponin I 0.16 H* B-Natriuretic Peptide Total Protein Albumin Globulin Albumin/Globulin Ratio Vitamin B12 TSH Urine Color Urine Appearance Urine pH Ur Specific [place] Urine Protein Urine Ketones Urine Blood Urine Nitrate Urine Bilirubin Urine Urobilinogen Ur Leukocyte Esterase Urine WBC (Auto) Urine RBC (Auto) Urine Bacteria Urine Glucose Nutrition: Carbohydrate diet Impression: 79 y o m with h/o severe sys CHF, early stage prostate cancer, GERD, COPD, HTN, DM brought in for evaluation of weakness, nausea, was found to have hyponatremia , metabolic acidosis and renal failure. 1. Prerenal renal failure 2. Acute on chronic renal failure sec to dehydration 3. Hyponatremia 4. UTI 5. New onset A.fib 6. Elevated troponin 7. Sys CHF 8. H/o prostate cancer Plan: 1. Neuro: No focal deficits, appears tired and sleepy today. Depressed recently with deaths in family- normal grief, declined help from psychiatrist or meds. 2. Resp: Has h/o COPD, stable currently with no exacerbation, currently on RA. Nebs prn 3. CVS: Severe sys CHF, medically managed, declined ICD in past, new onset A.fib , converted back to sinus. Was hypotensive yesterday, restarted on beta daisy. Troponin elevated, no EKG changes concerning for ischemia at this time. Cardiology consult appreciated. 4. Renal: Acute on chronic RF, hyponatremia, metabolic acidosis. Received sodium bicarb last night. Sodium corrected faster than expected which could be seen in pts with extreme dehydration, no neurological sx. Will d/c sodium containing fluids and change to Lactated ringers. Pt with UTI, has turbid urine. Monitor BMP closely. 5. ID: UTI on Rocephin day#2/7, leucocytosis improving. Lactate within normal limits. 6. Endo: H/o DM, bl sugars being closley monitored, Pt not SS as sugars are only slghtly elevated. Will monitor 7. GI: Diet started this morning as Nausea resolved. c/w PPI 8. Haem: Microcytic anemia, will check Iron levels. Leucocytosis improving 9. DVT px: heparin SQ IV access - peripheral Maurer for hemodynamic monitoring OOB to chair and activity as tolerated Critical Care Time: 25 min
[2019-07-17 14:16] LABS: Anion Gap 11 mmol/L (2-11); BUN/Creatinine Ratio 42.8 (8-20); Blood Urea Nitrogen 121 mg/dL (6-24); CO2 Carbon Dioxide 20 mmol/L (22-32); Chloride 100 mmol/L (101-111); EGFR African American 26.2 (>60); EGFR Non-African American 21.6 (>60); Glucose 164 mg/dL (70-100); Potassium 4.4 mmol/L (3.5-5.0); Sodium 131 mmol/L (135-145)
[2019-07-17 14:19] LABS: Troponin I 0.19 ng/mL (<0.04)
[2019-07-17] MEDS: cefTRIAXone(*) 1 GM in NS 0.9% 50 ML* 50 ML IVPB SCH (17:58)
[2019-07-17 20:28] LABS: Troponin I 0.15 ng/mL (<0.04)
[2019-07-18] MEDS: Lactated Ringers 1000 ML Bag* 1,000 ML IV SCH (05:21)
[2019-07-18 05:37] LABS: Anion Gap 9 mmol/L (2-11); BUN/Creatinine Ratio 44.5 (8-20); Blood Urea Nitrogen 102 mg/dL (6-24); CO2 Carbon Dioxide 20 mmol/L (22-32); Calcium 7.9 mg/dL (8.6-10.3); Chloride 102 mmol/L (101-111); EGFR African American 33.4 (>60); EGFR Non-African American 27.6 (>60); Glucose 131 mg/dL (70-100); Sodium 131 mmol/L (135-145)
[2019-07-18] MEDS: Heparin VIAL(*) 5000 UNITS/ML VIAL (FIVE THOUSAND) SUBCUT SCH ×3 (06:12→21:46)
[2019-07-18 06:35] LABS: % Iron Saturation 45 % (15-55); Iron 70 ug/dL (50-212); Total Iron Binding Capacity 154 mcg/dL (250-450); Transferrin 110 mg/dL (203-362)
[2019-07-18 06:56] LABS: Ferritin 536.7 ng/mL (24-336)
[2019-07-18] MEDS: Metoprolol Succinate XL TAB* 25 MG PO SCH (07:57)
[2019-07-18] MEDS: Famotidine IV* 10 MG/ML 2 ML (20 mg) IVPB SCH (07:57)
--- NOTE | 2019-07-18 07:58 | PN ---
Progress Note - Progress Note Date of Service: 07/18/19 - Transfer summary Note: Date of ICU admission: 07/16/19 Reason for ICU admission: Hyponatremia, renal failure Diagnosis: 1. Prerenal renal failure 2. Acute on chronic renal failure sec to dehydration 3. Hyponatremia 4. UTI 5. New onset A.fib 6. Elevated troponin 7. Sys CHF 8. H/o prostate cancer Meds at home: Aspirin 81 mg CHEW TAB* 81 mg PO DAILY Cyanocobalamin TAB* [Vitamin B12 TAB*] 1,000 mcg PO DAILY Metoprolol Succinate XL TAB* [Toprol XL TAB*] 37.5 mg PO DAILY Spironolactone TAB* [Aldactone TAB 25 MG*] 25 mg PO DAILY amLODIPine TAB* [Norvasc 5 mg TAB*] 10 mg PO DAILY HYDROcodone/ACETAMIN 5-325 MG* [[place] 5-325 TAB*] 1 tab PO Q6H PRN Omeprazole CAP (NF) [Prilosec CAP* 20 MG] 20 mg PO DAILY #30 cap Atorvastatin Calcium [Lipitor] 80 mg PO DAILY 07/16/19 Ipratropium Br (Nf)0.03% Nasal [Ipratropium [place]] 2 spray BOTH NARES BID Ramipril CAP* [Altace CAP*] 20 mg PO DAILY Torsemide TAB* [Demadex*] 10 mg PO DAILY Current meds: Active Medications Generic Name Dose Route Start Last Admin Trade Name Freq PRN Reason Stop Dose Admin Acetaminophen 650 mg 07/16/19 17:03 07/16/19 17:19 Tylenol Tab* PO 650 mg Q4H PRN Administration PAIN - MILD Famotidine 20 mg 07/16/19 15:00 07/17/19 08:00 Pepcid Iv* IVPB 20 mg DAILY YAMILETH Administration Heparin Sodium (Porcine) 5,000 units 07/16/19 14:00 07/18/19 06:12 Heparin Vial(*) SUBCUT 5,000 units Q8HR YAMILETH Administration Ceftriaxone Sodium 1 gm/ 50 mls @ 100 mls/hr 07/16/19 18:00 07/17/19 17:58 Sodium Chloride IVPB 100 mls/hr Q24H YAMILETH Administration Lactated Ringer's 1,000 mls @ 50 mls/hr 07/17/19 10:00 07/18/19 05:21 Lactated Ringers 1000 Ml Bag* IV 50 mls/hr PER RATE YAMILETH Administration Metoprolol Succinate 25 mg 07/17/19 10:00 07/17/19 09:28 Toprol Xl Tab* PO 25 mg DAILY YAMILETH Administration Ondansetron HCl 4 mg 07/16/19 15:46 07/16/19 20:17 Zofran Inj* IV 4 mg Q6H PRN Administration NAUSEA Pharmacy Profile Note 1 note 07/19/19 18:00 Scopolamine Patch Remove* PATCH OFF Q72H YAMILETH Scopolamine 1 patch 07/16/19 18:00 07/16/19 17:17 Transderm-Scop 1.5 Mg Patch* TRANSDERM 1 patch Q72H YAMILETH Administration O/E: Pt in NAD, sitting up in bed HEENT: PERRLA Lungs: Good air entry b/l CVS; S1, S2+ Abd: Soft, BS+ Ext: Normal ROM Skin: No rash Neuro: Alert, awake, no focal deficits Brief summary of ICU stay: 79 y o m with h/o severe sys CHF, early stage prostate cancer, GERD, COPD, HTN, DM brought in for evaluation of weakness, nausea, was found to have hyponatremia, metabolic acidosis and renal failure. Pt was depressed with recent deaths in family and was not eating or drinking for few days. He lives alone at home. He was found to have acute on chronic renal failure secondary to severe dehydration. Patient has responded to fluid resuscitation, renal failure has been improving and hyponatremia has improved. He is receiving lactated ringers at 50cc/hr. Nausea and retching has resolved. He has elevated troponins secondary to stress induced ischemia with no EKG changes. He had episode of A.fib that has concerted back to sinus rhythm. Cardiology was consulted. ECHO is pending. He was started on betablocker and other home meds are being held given borderline BP. He was also found to have UTI and was started on Ceftriaxone. Has been tolerating diet however with poor oral intake. He has h/o DM, bl sugars slightly elevated, not requiring Insulin SS. Has turbid urine, dao removed today. Has microcytic anemia, normal Fe levels. patient with normal grief after deaths in family, declined any help. Might need home care services upon d/c Patients daughter is HCP Patient is stable to be transferred to telemetry under hospitalist service. GI ppx: H2 daisy DVT px: heparin SQ IV access - peripheral Dao removed 07/18 Full code OOB to chair and activity as tolerated D/w Dr Rodriguez
[2019-07-18] MEDS ORDERED: Famotidine TAB* 20 MG PO SCH (11:00)
--- NOTE | 2019-07-18 18:49 | PN ---
Subjective Date of Service: 07/18/19 Interval History: f/u episode of PAfib provoked, LBBB, NICM/systolic HF - Patient did not eat dinner - IV fluids running - No dypspnea or chest pain at rest tele: no arrhythmias or significant pauses Admission Date: 07/16/19 Consult date 07/17/2019 PCP: Dr. Block Provider: Machine Bender CC: Weakness Reason for consult: Episode of paroxysmal atrial fibrillation. HISTORY OF PRESENT ILLNESS: The patient is an 79-year-old man with a history as below. He was admitted with generalized weakness, nausea, vomiting and poor appetite with depression after multiple family deaths. He had complaints of dyspnea and chest pain on H+P but denied these symptoms to me. He was found with KALLIE, respiratory failure and electrolyte abnormalities (including hyponatremia in setting of AceI and loop diuretic) felt to be related to volume depletion. Overnight he went into rapid atrial fibrillation. His BP has been low. He felt symptoms of anxious fluttering in his abdomen. He states he has never had that symptom previously. He was given adenosine and digoxin IV. He converted to sinus rhythm. He no longer has that symptom. PAST MEDICAL HISTORY: 1. Severe NICM, LBBB, has declined BiV-ICD in the past, has seen Dr. Chavis previously last time 2015 2. Prostate cancer 3. GERD. 4. COPD, quit smoking in 1989. 5. History of kidney stones. 6. Hypertension. 7. Diabetes. 8. Dyslipidemia. PAST SURGICAL HISTORY: 1. Prostate biopsy. 2. Cardiac catheterization. FH: Father: due to Parkinsons Disease - (age 85 Years) CVA (60s). SH: Smoking: Patient is a former smoker - Quit 20 yrs ago.C Alcohol: Occasionally consumes alcohol - No drugs allergies: Nkda Medications Active Medications: Acetaminophen (Tylenol Tab*) 650 mg PO Q4H PRN PRN Reason: PAIN - MILD Last Admin: 07/16/19 17:19 Dose: 650 mg Famotidine (Pepcid Tab*) 20 mg PO DAILY [facility] Heparin Sodium (Porcine) (Heparin Vial(*)) 5,000 units SUBCUT Q8HR YAMILETH Last Admin: 07/18/19 13:41 Dose: 5,000 units Ceftriaxone Sodium 1 gm/ (Sodium Chloride) 50 mls @ 100 mls/hr IVPB Q24H [facility] Last Admin: 07/17/19 17:58 Dose: 100 mls/hr Lactated Ringer's (Lactated Ringers 1000 Ml Bag*) 1,000 mls @ 50 mls/hr IV PER RATE YAMILETH Last Admin: 07/18/19 05:21 Dose: 50 mls/hr Metoprolol Succinate (Toprol Xl Tab*) 37.5 mg PO DAILY [facility] Ondansetron HCl (Zofran Inj*) 4 mg IV Q6H PRN PRN Reason: NAUSEA Last Admin: 07/16/19 20:17 Dose: 4 mg Pharmacy Profile Note (Scopolamine Patch Remove*) 1 note PATCH OFF Q72H YAMILETH Scopolamine (Transderm-Scop 1.5 Mg Patch*) 1 patch TRANSDERM Q72H YAMILETH Last Admin: 07/16/19 17:17 Dose: 1 patch Objective Vital Signs: Temp Pulse Resp BP Pulse Ox 97.5 F 72 16 107/54 99 07/18/19 16:10 07/18/19 16:10 07/18/19 16:10 07/18/19 16:10 07/18/19 16:10 Oxygen Devices in Use Now: None Appearance: not toxic appearing, nad Ears/Nose/Mouth/Throat: Clear Oropharnyx, Mucous Membranes Moist Neck: Trachea Midline Respiratory: Symmetrical Chest Expansion and Respiratory Effort, Clear to Auscultation Cardiovascular: RRR, No Edema, - - uncertain jvp Abdominal: NL Sounds; No Tenderness; No Distention Extremities: No Edema Skin: No Rash or Ulcers Neurological: Alert and Oriented x 3 Laboratory Results: 07/17/19 04:04 07/18/19 04:37 Total Bilirubin 0.50 mg/dL (0.2-1.0) 07/16/19 11:10 AST 12 U/L (13-39) L 07/16/19 11:10 ALT 17 U/L (7-52) 07/16/19 11:10 Alkaline Phosphatase 130 U/L (34-104) H 07/16/19 11:10 B-Natriuretic Peptide 281 pg/mL (<=100) H 07/16/19 11:03 Total Protein 7.5 g/dL (6.4-8.9) 07/16/19 11:10 Albumin 3.8 g/dL (3.2-5.2) 07/16/19 11:10 Globulin 3.7 g/dL (2-4) 07/16/19 11:10 Albumin/Globulin Ratio 1.0 (1-3) 07/16/19 11:10 TSH 0.49 mcIU/mL (0.34-5.60) 07/16/19 14:39 07/16/19 07/16/19 07/16/19 11:10 13:59 19:20 Troponin I 0.07 H* 0.08 H* 0.09 H* 07/17/19 07/17/19 07/17/19 08:24 13:47 19:59 Troponin I 0.16 H* 0.19 H* 0.15 H* Diagnostic Imaging: Echocardiogram - (08/20/2010) Severe LV dysfunction EF 15% Mild MR Trace TR Est PASP 35 mmHg Cardiac Catheterization - (01/09/2004) normal coronary arteries LVEF 10% in 11/30; Exam Date: 07/16/19 IMPRESSION: NO ACTIVE CARDIOPULMONARY DISEASE IS NOTED. EKG Data: ekg admission: NSR, LBBB PVC ekg overnight rapid afib 160 bpm lbbb ekg this AM NSr 97 bpm, LBBB pvc's Assessment/Plan 1. Paroxysmal atrial fibrillation - Provoked 2. NICM/systolic HF - chronic 3. LBBB - QRS > 150 ms 4. Symptomatic dehydration and KALLIE - In setting of poor appetite with depression and AceI/loop diuretic use - I do not think needs anticoagulation for this one symptomatic provoked episode without previous symptoms - Increase metoprolol succinate back to regular 37.5 mg po daily (ordered) - Can restart patients other heart failure medications when appropriate if he resumes eating and drinking regularly and KALLIE resolves. If BP remains low does not need norvasc - I don't think we need to repeat an echo, his LVEF has known to be chronically severely reduced Thank you for allowing me to participate in the cardiovascular care of this patient. Please do not hesitate to contact me with questions or concerns.
[2019-07-18] MEDS: cefTRIAXone(*) 1 GM in NS 0.9% 50 ML* 50 ML IVPB SCH (19:28)
[2019-07-18] MEDS: Acetaminophen TAB* 325 MG PO PRN (20:52)
[2019-07-19] MEDS: Heparin VIAL(*) 5000 UNITS/ML VIAL (FIVE THOUSAND) SUBCUT SCH ×3 (05:55→21:55)
[2019-07-19] MEDS: Lactated Ringers 1000 ML Bag* 1,000 ML IV SCH (06:00)
[2019-07-19] MEDS: Acetaminophen TAB* 325 MG PO PRN ×2 (06:04→19:26)
[2019-07-19] MEDS ORDERED: Metoprolol Succinate XL TAB* 25 MG PO SCH ×2 (09:00→10:15)
[2019-07-19] MEDS: Famotidine TAB* 20 MG PO SCH (10:48)
[2019-07-19] MEDS ORDERED: Scopolamine PATCH Remove* 1 NOTE MISC PATCH OFF SCH (18:00)
[2019-07-19] MEDS: Scopolamine 1.5 mg* PATCH TRANSDERM SCH (18:20)
[2019-07-19] MEDS: cefTRIAXone(*) 1 GM in NS 0.9% 50 ML* 50 ML IVPB SCH (18:22)
--- NOTE | 2019-07-19 18:40 | PN ---
Subjective Date of Service: 07/19/19 Interval History: Patient states breathing has improved, but is not at baseline. He can walk to bathroom. His appetite is moderate. He cannot explain dehydration that led him to hospitalization. Remembers heart palpitations, chest pain a few days ago. Had a-fib, now resolved. Family History: Unchanged from Admission Social History: Unchanged from Admission Past Medical History: Unchanged from Admission Objective Active Medications: Acetaminophen (Tylenol Tab*) 650 mg PO Q4H PRN PRN Reason: PAIN - MILD Last Admin: 07/19/19 06:04 Dose: 650 mg Famotidine (Pepcid Tab*) 20 mg PO DAILY [facility] Last Admin: 07/19/19 10:48 Dose: 20 mg Heparin Sodium (Porcine) (Heparin Vial(*)) 5,000 units SUBCUT Q8HR [facility] Last Admin: 07/19/19 14:36 Dose: 5,000 units Ceftriaxone Sodium 1 gm/ (Sodium Chloride) 50 mls @ 100 mls/hr IVPB Q24H [facility] Last Admin: 07/19/19 18:22 Dose: 100 mls/hr Lactated Ringer's (Lactated Ringers 1000 Ml Bag*) 1,000 mls @ 50 mls/hr IV PER RATE [facility] Last Admin: 07/19/19 06:00 Dose: 50 mls/hr Metoprolol Succinate (Toprol Xl Tab*) 12.5 mg PO BID [facility] Ondansetron HCl (Zofran Inj*) 4 mg IV Q6H PRN PRN Reason: NAUSEA Last Admin: 07/16/19 20:17 Dose: 4 mg Scopolamine (Transderm-Scop 1.5 Mg Patch*) 1 patch TRANSDERM Q72H [facility] Last Admin: 07/19/19 18:20 Dose: 1 patch Vital Signs - 8 hr 07/19/19 07/19/19 11:15 15:15 Temperature 36.7 C 36.6 C Pulse Rate 75 78 Respiratory 20 20 Rate Blood Pressure 116/52 151/56 (mmHg) O2 Sat by Pulse 98 100 Oximetry Oxygen Devices in Use Now: None Appearance: alert, no distress Eyes: No Scleral Icterus Ears/Nose/Mouth/Throat: Clear Oropharnyx Neck: NL Appearance and Movements; NL JVP Respiratory: Symmetrical Chest Expansion and Respiratory Effort, Clear to Auscultation Cardiovascular: NL Sounds; No Murmurs; No JVD, RRR Abdominal: NL Sounds; No Tenderness; No Distention Lymphatic: No Cervical Adenopathy Neurological: Alert and Oriented x 3, - - appears depressed Lines/Tubes/Other Access: Clean, Dry and Intact Peripheral IV Nutrition: Taking PO's Result Diagrams: 07/17/19 04:04 07/18/19 04:37 Additional Lab and Data: Laboratory Tests 07/18/19 07/18/19 07/19/19 11:31 18:48 00:15 POC Glucose (mg/dL) 243 H 214 H 152 H 07/19/19 06:07 POC Glucose (mg/dL) 137 H Microbiology and Other Data: Microbiology 07/16/19 14:51 Nasal Nasal Screen MRSA (PCR) - Final Mrsa Not Detected 07/16/19 14:39 Urine Urine Culture - Final Escherichia Coli Assess/Plan/Problems-Billing Assessment: 79 year old admitted to ICU with hyponatremia, new onset AF, acute on chronic renal failure, UTI, thought related to depression - Patient Problems (1) Paroxysmal atrial fibrillation Current Visit: Yes Status: Acute Priority: High Code(s): I48.0 - PAROXYSMAL ATRIAL FIBRILLATION SNOMED Code(s): 642156191 Comment: -BP low this AM, beta daisy dose reduced -BP higher this PM, will give BID -Remains in NSR, not anticoagulated because was brief episode (2) Acute kidney injury superimposed on chronic kidney disease Current Visit: Yes Status: Acute Priority: Medium Code(s): N17.9 - ACUTE KIDNEY FAILURE, UNSPECIFIED; N18.9 - CHRONIC KIDNEY DISEASE, UNSPECIFIED SNOMED Code(s): 03506572 Comment: -Creatinine improving w/ IV LR -Repeat testing in AM (3) E. coli UTI (urinary tract infection) Current Visit: Yes Status: Acute Priority: Medium Code(s): N39.0 - URINARY TRACT INFECTION, SITE NOT SPECIFIED; B96.20 - UNSP ESCHERICHIA COLI THE CAUSE OF DISEASES CLASSD [facility] SNOMED Code(s): 871402309 Comment: -Responding to IV ceftriaxone (4) DVT prophylaxis Current Visit: No Status: Chronic Priority: Low Code(s): MND7447 - SNOMED Code(s): 449862593 Comment: SC heparin (5) Depression Current Visit: Yes Status: Acute Priority: Medium Code(s): F32.9 - MAJOR DEPRESSIVE DISORDER, SINGLE EPISODE, UNSPECIFIED SNOMED Code(s): 88226872 Comment: Will discuss starting SSRI prior to discharge. Status and Disposition: inpatient
[2019-07-19] MEDS: Metoprolol Succinate XL TAB* 25 MG PO SCH (21:54)
[2019-07-20] MEDS: Acetaminophen TAB* 325 MG PO PRN ×3 (00:46→11:21)
[2019-07-20] MEDS: Lactated Ringers 1000 ML Bag* 1,000 ML IV SCH ×2 (02:49→23:39)
[2019-07-20] MEDS: Heparin VIAL(*) 5000 UNITS/ML VIAL (FIVE THOUSAND) SUBCUT SCH ×3 (05:36→20:31)
[2019-07-20 06:42] LABS: ABS Basophils 0.5 10^3/ul (0-0.2); ABS Eosinophils 0.3 10^3/ul (0-0.6); ABS Lymphocytes 1.3 10^3/ul (1.0-4.8); ABS Monocytes 0.7 10^3/ul (0-0.8); ABS Neutrophils 8.8 10^3/ul (1.5-7.7); Eosinophil % 2.4 %; Hematocrit 33 % (42-52); Hemoglobin 10.8 g/dL (14.0-18.0); Lymphocyte % 11.6 %; Mean Corpuscular HGB Conc 33 g/dL (31-36); Mean Corpuscular Hemoglobin 29 pg (27-31); Mean Corpuscular Volume 88 fL (80-94); Mean Platelet Volume 10.1 fL (7.4-10.4); Platelet Count 318 10^3/uL (150-450); Red Blood Count 3.72 10^6 /uL (4.18-5.48); Red Cell Distribution Width 15 % (10-15); White Blood Count 11.6 10^3/uL (3.5-10.8)
[2019-07-20 07:02] LABS: BUN/Creatinine Ratio 30.4 (8-20); Calcium 8.2 mg/dL (8.6-10.3); EGFR African American 46.8 (>60); EGFR Non-African American 38.7 (>60); Potassium 4.3 mmol/L (3.5-5.0)
--- NOTE | 2019-07-20 07:47 | PN ---
Subjective Date of Service: 07/20/19 Interval History: HOSPITALIST PROGRESS NOTE Patient seen and examined at bedside. Care reviewed and d/w Lakeisha Nath RN. He offers no new complaints today. Still very depressed, doesn't think he can manage at home by himself. Family History: Unchanged from Admission Social History: Unchanged from Admission Past Medical History: Unchanged from Admission Objective Active Medications: Acetaminophen (Tylenol Tab*) 650 mg PO Q4H PRN PRN Reason: PAIN - MILD Last Admin: 07/20/19 05:37 Dose: 650 mg Famotidine (Pepcid Tab*) 20 mg PO DAILY [facility] Last Admin: 07/19/19 10:48 Dose: 20 mg Heparin Sodium (Porcine) (Heparin Vial(*)) 5,000 units SUBCUT Q8HR [facility] Last Admin: 07/20/19 05:36 Dose: 5,000 units Ceftriaxone Sodium 1 gm/ (Sodium Chloride) 50 mls @ 100 mls/hr IVPB Q24H [facility] Last Admin: 07/19/19 18:22 Dose: 100 mls/hr Lactated Ringer's (Lactated Ringers 1000 Ml Bag*) 1,000 mls @ 50 mls/hr IV PER RATE [facility] Last Admin: 07/20/19 02:49 Dose: 50 mls/hr Metoprolol Succinate (Toprol Xl Tab*) 12.5 mg PO BID [facility] Last Admin: 07/19/19 21:54 Dose: 12.5 mg Ondansetron HCl (Zofran Inj*) 4 mg IV Q6H PRN PRN Reason: NAUSEA Last Admin: 07/16/19 20:17 Dose: 4 mg Pharmacy Profile Note (Scopolamine Patch Remove*) 1 note PATCH OFF Q72H [facility] Last Admin: 07/19/19 18:27 Dose: 1 patch Scopolamine (Transderm-Scop 1.5 Mg Patch*) 1 patch TRANSDERM Q72H [facility] Last Admin: 07/19/19 18:20 Dose: 1 patch Vital Signs - 8 hr 07/20/19 03:15 Temperature 97.7 F Pulse Rate 81 Respiratory 18 Rate Blood Pressure 117/55 (mmHg) O2 Sat by Pulse 98 Oximetry Oxygen Devices in Use Now: None Appearance: Elderly gentleman lying in bed in NAD, mood is depressed Eyes: No Scleral Icterus Ears/Nose/Mouth/Throat: Mucous Membranes Moist Neck: Trachea Midline Respiratory: Symmetrical Chest Expansion and Respiratory Effort, Clear to Auscultation Cardiovascular: RRR - Normal S1 and S2 Abdominal: NL Sounds; No Tenderness; No Distention Neurological: Alert and Oriented x 3, NL Muscle Strength and Tone Result Diagrams: 07/20/19 05:24 07/20/19 05:24 Assess/Plan/Problems-Billing Assessment: Mr Hendricks is an 79 yo M with PMH of systolic CHF EF<20%, prostate CA (Low Marcelina , watchful waiting), GERD, COPD, nephrolithiasis, HTN, DM, HLD, who presented to ED with c/o weakness, N/V; admitted to ICU with hyponatremia, new onset AF, acute on chronic renal failure, UTI, thought related to depression associated with of multiple family members. - Patient Problems (1) Paroxysmal atrial fibrillation Comment: - Remains in NSR, anticoagulation not indicated because episode was brief. - Continue Metoprolol. (2) Acute kidney injury superimposed on chronic kidney disease Comment: - Creatinine continues to improve. - Continue gentle IVF. (3) E. coli UTI (urinary tract infection) Comment: - Continue Ceftriaxone #5. (4) Depression Comment: - D/w patient - agreeable with starting Sertraline. (5) Physical deconditioning Comment: - Continue PT. May benefit of SNF placement. (6) DVT prophylaxis Comment: - SQ heparin. (7) Full code status Status and Disposition: Inpatient.
[2019-07-20] MEDS: Famotidine TAB* 20 MG PO SCH (08:41)
[2019-07-20] MEDS: Metoprolol Succinate XL TAB* 25 MG PO SCH ×2 (08:42→20:31)
[2019-07-20] MEDS: Ondansetron INJ* 2 MG/ML VIAL IV PRN (10:52)
[2019-07-20] MEDS: Sertraline* 25 MG TAB PO SCH (11:22)
[2019-07-20] MEDS: cefTRIAXone(*) 1 GM in NS 0.9% 50 ML* 50 ML IVPB SCH (17:11)
[2019-07-20] MEDS ORDERED: Dextrose 50% VIAL 50 ml IV PUSH PRN (19:21)
[2019-07-21] MEDS: Acetaminophen TAB* 325 MG PO PRN ×2 (03:10→21:27)
[2019-07-21] MEDS: Heparin VIAL(*) 5000 UNITS/ML VIAL (FIVE THOUSAND) SUBCUT SCH ×3 (05:05→21:27)
[2019-07-21 07:00] LABS: Hematocrit 30 % (42-52); Hemoglobin 10.1 g/dL (14.0-18.0); Mean Corpuscular HGB Conc 34 g/dL (31-36); Mean Corpuscular Hemoglobin 30 pg (27-31); Mean Corpuscular Volume 88 fL (80-94); Mean Platelet Volume 9.4 fL (7.4-10.4); Platelet Count 270 10^3/uL (150-450); Red Blood Count 3.34 10^6 /uL (4.18-5.48); Red Cell Distribution Width 15 % (10-15); White Blood Count 10.7 10^3/uL (3.5-10.8)
[2019-07-21 07:23] LABS: BUN/Creatinine Ratio 21.7 (8-20); EGFR African American 48.5 (>60); EGFR Non-African American 40.1 (>60); Potassium 4.5 mmol/L (3.5-5.0)
[2019-07-21 07:31] LABS: ABS Basophils 0.3 10^3/ul (0-0.2); ABS Eosinophils 0.3 10^3/ul (0-0.6); ABS Lymphocytes 1.2 10^3/ul (1.0-4.8); ABS Monocytes 1.3 10^3/ul (0-0.8); ABS Neutrophils 7.7 10^3/ul (1.5-7.7); Eosinophil % 2.9 %; Lymphocyte % 11.1 %
--- NOTE | 2019-07-21 08:14 | PN ---
Subjective Date of Service: 07/21/19 Interval History: HOSPITALIST PROGRESS NOTE Patient seen and examined at bedside. Care reviewed and d/w Elisa Do RN. I saw him earlier today. At that point, he was c/o back pain from being in bed for so long. In the past he had relief of his back pain with hydrocodone. Otherwise he was feeling well and looking forward to going to [facility] for rehab. Around 12:30 I was called by RN because patient had pauses on Telemetry and was symptomatic. Family History: Unchanged from Admission Social History: Unchanged from Admission Past Medical History: Unchanged from Admission Objective Active Medications: Acetaminophen (Tylenol Tab*) 650 mg PO Q4H PRN PRN Reason: PAIN - MILD Last Admin: 07/21/19 03:10 Dose: 650 mg Cefuroxime Axetil (Ceftin Tab(*)) 250 mg PO BID [facility] Stop: 07/25/19 21:01 Dextrose (Dextrose 50% Vial 50 Ml*) 25 ml IV PUSH .FOR FS < 60 - SS PRN PRN Reason: FS < 60 Famotidine (Pepcid Tab*) 20 mg PO DAILY [facility] Last Admin: 07/20/19 08:41 Dose: 20 mg Heparin Sodium (Porcine) (Heparin Vial(*)) 5,000 units SUBCUT Q8HR [facility] Last Admin: 07/21/19 05:05 Dose: 5,000 units Insulin Human Lispro (Humalog*) 0 units SUBCUT AC [facility]; Protocol Metoprolol Succinate (Toprol Xl Tab*) 12.5 mg PO BID [facility] Last Admin: 07/20/19 20:31 Dose: 12.5 mg Ondansetron HCl (Zofran Inj*) 4 mg IV Q6H PRN PRN Reason: NAUSEA Last Admin: 07/20/19 10:52 Dose: 4 mg Pharmacy Profile Note (Scopolamine Patch Remove*) 1 note PATCH OFF Q72H [facility] Last Admin: 07/19/19 18:27 Dose: 1 patch Scopolamine (Transderm-Scop 1.5 Mg Patch*) 1 patch TRANSDERM Q72H [facility] Last Admin: 07/19/19 18:20 Dose: 1 patch Sertraline HCl (Zoloft*) 25 mg PO DAILY [facility] Last Admin: 07/20/19 11:22 Dose: 25 mg Vital Signs - 8 hr 07/21/19 03:48 Temperature 98.2 F Pulse Rate 79 Respiratory 15 Rate Blood Pressure 112/52 (mmHg) O2 Sat by Pulse 97 Oximetry Oxygen Devices in Use Now: None Appearance: Pleasant elderly gentleman sitting up in recliner in NAD. Eyes: No Scleral Icterus Ears/Nose/Mouth/Throat: Mucous Membranes Moist Neck: Trachea Midline Respiratory: Symmetrical Chest Expansion and Respiratory Effort, Clear to Auscultation Cardiovascular: RRR - Normal S1 and S2 Abdominal: NL Sounds; No Tenderness; No Distention Neurological: Alert and Oriented x 3, NL Muscle Strength and Tone Result Diagrams: 07/21/19 06:38 07/21/19 06:38 Assess/Plan/Problems-Billing Assessment: Mr Hendricks is an 79 yo M with PMH of systolic CHF EF<20%, prostate CA (Low Marcelina , watchful waiting), GERD, COPD, nephrolithiasis, HTN, DM, HLD, who presented to ED with c/o weakness, N/V; admitted to ICU with hyponatremia, new onset AF, acute on chronic renal failure, UTI, thought related to depression associated with of multiple family members. - Patient Problems (1) Sinus arrest Comment: - STAT Cardiology consult appreciated - patient has known h/o LBBB with severe NICM. Declined BiV- ICD and ENVIRONMENTAL EMERGENCIES ASSISTANT-D in the past. - Cardiology recommended pacer for SSS - patient wants to talk to daughter before. - In the meantime, will transfer to ICU with pacer pads and Zoll at bedside. (2) Paroxysmal atrial fibrillation Comment: - Remains in NSR, anticoagulation not indicated because episode was brief. - Metoprolol held for now in the setting of sinus asystole. (3) Acute kidney injury superimposed on chronic kidney disease Comment: - Creatinine continues to improve. - D/c IVF. (4) E. coli UTI (urinary tract infection) Comment: - Received 5 days of Ceftriaxone, will change to PO Ceftin. (5) Type 2 diabetes mellitus Comment: - Continue Lispro SS. (6) Depression Comment: - D/w Cardiology - Sertraline was the only new medication added, but would not cause sinus asystole - will continue it. (7) Physical deconditioning Comment: - Hold PT for now. (8) DVT prophylaxis Comment: - SQ heparin. (9) Full code status Status and Disposition: Inpatient. Transfer to ICU.
[2019-07-21] MEDS: Insulin LISPRO* 1 UNITS UNIT SUBCUT SCH ×3 (08:34→16:39)
[2019-07-21] MEDS: Metoprolol Succinate XL TAB* 25 MG PO SCH (08:47)
[2019-07-21] MEDS: Famotidine TAB* 20 MG PO SCH (08:47)
[2019-07-21] MEDS: Sertraline* 25 MG TAB PO SCH (08:47)
[2019-07-21] MEDS ORDERED: oxyCODONE TAB* 5 MG TAB PO ONE (11:30)
--- NOTE | 2019-07-21 13:09 | PN ---
Subjective Date of Service: 07/21/19 - CC: asystole Interval History: I was asked to see pt urgently by Dr Mcmahon for sinus asystole, slow V. escape. The patient was seated in a froilan chair, awake comfortable, declining moving to his bed. He denied feeling dizzy or other acute c/o. I showed the patient his tele strips and had extensive discussions about risk of bradycardia, treatment options. Medications Active Medications: Acetaminophen (Tylenol Tab*) 650 mg PO Q4H PRN PRN Reason: PAIN - MILD Last Admin: 07/21/19 03:10 Dose: 650 mg Hydrocodone Bitart/Acetaminophen ([place] 5-325 Tab*) 1 tab PO Q6H PRN PRN Reason: PAIN - MODERATE Hydrocodone Bitart/Acetaminophen ([place] 5-325 Tab*) 2 tab PO Q6H PRN PRN Reason: PAIN - SEVERE Cefuroxime Axetil (Ceftin Tab(*)) 250 mg PO BID [facility] Stop: 07/25/19 21:01 Last Admin: 07/21/19 08:47 Dose: 250 mg Dextrose (Dextrose 50% Vial 50 Ml*) 25 ml IV PUSH .FOR FS < 60 - SS PRN PRN Reason: FS < 60 Famotidine (Pepcid Tab*) 20 mg PO DAILY [facility] Last Admin: 07/21/19 08:47 Dose: 20 mg Heparin Sodium (Porcine) (Heparin Vial(*)) 5,000 units SUBCUT Q8HR [facility] Last Admin: 07/21/19 05:05 Dose: 5,000 units Insulin Human Lispro (Humalog*) 0 units SUBCUT AC [facility]; Protocol Last Admin: 07/21/19 11:50 Dose: 2 units Metoprolol Succinate (Toprol Xl Tab*) 12.5 mg PO BID [facility] Last Admin: 07/21/19 08:47 Dose: 12.5 mg Ondansetron HCl (Zofran Inj*) 4 mg IV Q6H PRN PRN Reason: NAUSEA Last Admin: 07/20/19 10:52 Dose: 4 mg Pharmacy Profile Note (Scopolamine Patch Remove*) 1 note PATCH OFF Q72H [facility] Last Admin: 07/19/19 18:27 Dose: 1 patch Scopolamine (Transderm-Scop 1.5 Mg Patch*) 1 patch TRANSDERM Q72H [facility] Last Admin: 07/19/19 18:20 Dose: 1 patch Sertraline HCl (Zoloft*) 25 mg PO DAILY [facility] Last Admin: 07/21/19 08:47 Dose: 25 mg Objective Vital Signs: Temp Pulse Resp BP Pulse Ox 98.6 F 93 24 105/52 98 07/21/19 11:35 07/21/19 11:35 07/21/19 11:35 07/21/19 11:35 07/21/19 11:35 Oxygen Devices in Use Now: None Appearance: Seated in chair, 80 degrees, appears depressed, NAD. Eyes: No Scleral Icterus, PERRLA Ears/Nose/Mouth/Throat: Clear Oropharnyx, Mucous Membranes Moist Neck: Trachea Midline Respiratory: Symmetrical Chest Expansion and Respiratory Effort, Clear to Auscultation Cardiovascular: RRR, No Edema, - Abdominal: NL Sounds; No Tenderness; No Distention Extremities: No Edema Skin: No Rash or Ulcers Neurological: Alert and Oriented x 3 Lines/Tubes/Other Access: Clean, Dry and Intact Peripheral IV Laboratory Results: 07/21/19 06:38 07/21/19 06:38 Total Bilirubin 0.50 mg/dL (0.2-1.0) 07/16/19 11:10 AST 12 U/L (13-39) L 07/16/19 11:10 ALT 17 U/L (7-52) 07/16/19 11:10 Alkaline Phosphatase 130 U/L (34-104) H 07/16/19 11:10 B-Natriuretic Peptide 281 pg/mL (<=100) H 07/16/19 11:03 Total Protein 7.5 g/dL (6.4-8.9) 07/16/19 11:10 Albumin 3.8 g/dL (3.2-5.2) 07/16/19 11:10 Globulin 3.7 g/dL (2-4) 07/16/19 11:10 Albumin/Globulin Ratio 1.0 (1-3) 07/16/19 11:10 TSH 0.49 mcIU/mL (0.34-5.60) 07/16/19 14:39 07/16/19 07/16/19 07/16/19 11:10 13:59 19:20 Troponin I 0.07 H* 0.08 H* 0.09 H* 07/17/19 07/17/19 07/17/19 08:24 13:47 19:59 Troponin I 0.16 H* 0.19 H* 0.15 H* Diagnostic Imaging: Echocardiogram - (08/20/2010) Severe LV dysfunction EF 15% Mild MR Trace TR Est PASP 35 mmHg Cardiac Catheterization - (01/09/2004) normal coronary arteries LVEF 10% in 11/30; Exam Date: 07/16/19 IMPRESSION: NO ACTIVE CARDIOPULMONARY DISEASE IS NOTED. EKG Data: ekg admission: NSR, LBBB PVC Rhythm strips: 07/21/19 12:32: NSR, PVC to sinus asystole with slow idioventricular escape, up to 6 second pauses. Assessment/Plan 79 yo patient with longstanding LBBB, severe NICM, has declined BiV pacer or CERTIFIED DRIVER EXAMINER -D in the past. Hx PAF this admission and KALLIE this admission. Now sinus asystole while seated and just before discharge. I recommended a pacer for SSS-pt states he needs to talk to his daughter alex. I offered a temporary pacer, he declined. He is OK with an external pacemaker while he makes his decision. The patient is aware that he could with an external pacer. He is aware that he has the option of a pacer (biV) only, he can get a CERTIFIED DRIVER EXAMINER-D device, but could also get CERTIFIED DRIVER EXAMINER only. He is aware if he goes home/to [place] (as was planned for today) w/o a pacer he could suddenly He understands if he elects to leave the hospital w/o a pacemaker I would have him sign papers stating that he understood the risks of leaving w/o the treatment offered. As this was initiated w/a PVC I am not sure if holding or reducing BB will improve or worsen chances of further events. The patient's 7 months ago, he appears depressed. Not an unreasonable decision to decline therapy now (as many years with low EF/ LBBB and risk of SD untreated).
[2019-07-21] MEDS ORDERED: Polyethylene Glycol 3350* 17 GM PACKET PO PRN (21:12)
[2019-07-21] MEDS ORDERED: Senna TAB 8.6 mg* TAB PO PRN (21:12)
[2019-07-22 05:54] LABS: Hematocrit 31 % (42-52); Hemoglobin 10.2 g/dL (14.0-18.0); Mean Corpuscular HGB Conc 33 g/dL (31-36); Mean Corpuscular Hemoglobin 29 pg (27-31); Mean Corpuscular Volume 88 fL (80-94); Red Blood Count 3.49 10^6 /uL (4.18-5.48); Red Cell Distribution Width 15 % (10-15); White Blood Count 8.4 10^3/uL (3.5-10.8)
[2019-07-22 06:39] LABS: ABS Eosinophils 0.3 10^3/ul (0-0.6); ABS Lymphocytes 1.3 10^3/ul (1.0-4.8); ABS Monocytes 1.2 10^3/ul (0-0.8); ABS Neutrophils 5.5 10^3/ul (1.5-7.7); Eosinophil % 3.9 %; Lymphocyte % 15.9 %; Mean Platelet Volume 9.6 fL (7.4-10.4); Nucleated Red Blood Cells % 0.1; Platelet Count 283 10^3/uL (150-450)
[2019-07-22] MEDS: Heparin VIAL(*) 5000 UNITS/ML VIAL (FIVE THOUSAND) SUBCUT SCH ×3 (06:59→20:56)
[2019-07-22] MEDS: Insulin LISPRO* 1 UNITS UNIT SUBCUT SCH ×3 (09:21→18:09)
[2019-07-22] MEDS: Famotidine TAB* 20 MG PO SCH (09:22)
[2019-07-22] MEDS: Docusate CAP* 100 MG PO SCH ×2 (09:23→20:57)
[2019-07-22] MEDS: Sertraline* 25 MG TAB PO SCH (09:23)
[2019-07-22] MEDS: HYDROcodone/ACETAMIN 5-325 MG* 1 TAB PO PRN ×2 (09:24→15:24)
--- NOTE | 2019-07-22 11:45 | PN ---
Subjective Date of Service: 07/22/19 Interval History: Patient has no complaints, denies chest pain/palpitations/SOB. He has some back discomfort. Nurses are turn/positioning due to early sacral pressure injury. He has not decided about permanent pacer or code status, waiting until daughter comes in later today. Family History: Unchanged from Admission Social History: Unchanged from Admission Past Medical History: Unchanged from Admission Objective Active Medications: Acetaminophen (Tylenol Tab*) 650 mg PO Q4H PRN PRN Reason: PAIN - MILD Last Admin: 07/21/19 21:27 Dose: 650 mg Hydrocodone Bitart/Acetaminophen ([place] 5-325 Tab*) 1 tab PO Q6H PRN PRN Reason: PAIN - MODERATE Last Admin: 07/22/19 09:24 Dose: 1 tab Hydrocodone Bitart/Acetaminophen ([place] 5-325 Tab*) 2 tab PO Q6H PRN PRN Reason: PAIN - SEVERE Cefuroxime Axetil (Ceftin Tab(*)) 250 mg PO BID [facility] Stop: 07/25/19 21:01 Last Admin: 07/22/19 09:22 Dose: 250 mg Dextrose (Dextrose 50% Vial 50 Ml*) 25 ml IV PUSH .FOR FS < 60 - SS PRN PRN Reason: FS < 60 Docusate Sodium (Colace Cap*) 100 mg PO BID [facility] Last Admin: 07/22/19 09:23 Dose: 100 mg Famotidine (Pepcid Tab*) 20 mg PO DAILY [facility] Last Admin: 07/22/19 09:22 Dose: 20 mg Heparin Sodium (Porcine) (Heparin Vial(*)) 5,000 units SUBCUT Q8HR [facility] Last Admin: 07/22/19 06:59 Dose: 5,000 units Insulin Human Lispro (Humalog*) 0 units SUBCUT AC [facility]; Protocol Last Admin: 07/22/19 09:21 Dose: Not Given Ondansetron HCl (Zofran Inj*) 4 mg IV Q6H PRN PRN Reason: NAUSEA Last Admin: 07/20/19 10:52 Dose: 4 mg Polyethylene Glycol/Electrolytes (Miralax*) 17 gm PO DAILY PRN PRN Reason: CONSTIPATION Senna (Senokot 8.6 Mg Tab*) 1 tab PO BEDTIME PRN PRN Reason: CONSTIPATION Sertraline HCl (Zoloft*) 25 mg PO DAILY [facility] Last Admin: 07/22/19 09:23 Dose: 25 mg Vital Signs - 8 hr 07/22/19 07/22/19 07/22/19 04:00 05:00 06:00 Temperature 36.6 C Pulse Rate 88 89 62 Respiratory 19 24 19 Rate Blood Pressure 113/69 114/78 123/64 (mmHg) O2 Sat by Pulse 96 97 96 Oximetry 07/22/19 07/22/19 07/22/19 07:00 07:01 08:00 Temperature 36.9 C Pulse Rate 71 72 78 Respiratory 15 16 25 Rate Blood Pressure 117/58 143/69 (mmHg) O2 Sat by Pulse 95 94 98 Oximetry 07/22/19 07/22/19 07/22/19 08:01 09:00 10:00 Temperature Pulse Rate 79 76 73 Respiratory 21 28 22 Rate Blood Pressure 131/69 137/80 (mmHg) O2 Sat by Pulse 97 95 96 Oximetry Oxygen Devices in Use Now: None Appearance: alert, quiet, no distress Ears/Nose/Mouth/Throat: Clear Oropharnyx Neck: NL Appearance and Movements; NL JVP Respiratory: Symmetrical Chest Expansion and Respiratory Effort, Clear to Auscultation, - Cardiovascular: NL Sounds; No Murmurs; No JVD, RRR, - - pacer pads on chest Abdominal: NL Sounds; No Tenderness; No Distention Neurological: Alert and Oriented x 3 Lines/Tubes/Other Access: Clean, Dry and Intact Peripheral IV Nutrition: Taking PO's Result Diagrams: 07/22/19 05:04 07/21/19 06:38 Additional Lab and Data: Laboratory Tests 07/21/19 07/21/19 07/22/19 11:22 16:35 08:01 POC Glucose (mg/dL) 244 H 144 H 130 H Microbiology and Other Data: Microbiology 07/16/19 14:51 Nasal Nasal Screen MRSA (PCR) - Final Mrsa Not Detected 07/16/19 14:39 Urine Urine Culture - Final Escherichia Coli EKG Data: PVCs on monitor, no long pauses overnight Assess/Plan/Problems-Billing Assessment: Mr Hendricks is an 79 yo M with PMH of systolic CHF EF<20%, prostate CA (Low Sushma , watchful waiting), GERD, COPD, nephrolithiasis, HTN, DM, HLD, who presented to ED with c/o weakness, N/V; admitted to ICU with hyponatremia, new onset AF, acute on chronic renal failure, UTI, thought related to depression associated with of multiple family members. - Patient Problems (1) Paroxysmal atrial fibrillation Current Visit: Yes Status: Acute Priority: High Code(s): I48.0 - PAROXYSMAL ATRIAL FIBRILLATION SNOMED Code(s): 543589347 Comment: - Remains in NSR, anticoagulation not indicated because episode was brief. - Metoprolol held for now in the setting of sinus asystole. (2) Acute kidney injury superimposed on chronic kidney disease Current Visit: Yes Status: Acute Priority: Medium Code(s): N17.9 - ACUTE KIDNEY FAILURE, UNSPECIFIED; N18.9 - CHRONIC KIDNEY DISEASE, UNSPECIFIED SNOMED Code(s): 17314729 Comment: - Creatinine continues to improve. - Near baseline (3) E. coli UTI (urinary tract infection) Current Visit: Yes Status: Acute Priority: Medium Code(s): N39.0 - URINARY TRACT INFECTION, SITE NOT SPECIFIED; B96.20 - UNSP ESCHERICHIA COLI THE CAUSE OF DISEASES CLASSD [facility] SNOMED Code(s): 280206522 Comment: - doing well on PO Ceftin. (4) DVT prophylaxis Current Visit: Yes Status: Chronic Priority: Low Code(s): OLS6954 - SNOMED Code(s): 222028473 Comment: - SQ heparin. (5) Depression Current Visit: Yes Status: Acute Priority: Medium Code(s): F32.9 - MAJOR DEPRESSIVE DISORDER, SINGLE EPISODE, UNSPECIFIED SNOMED Code(s): 19905808 Comment: - Continue Sertraline, will increase in a few days if tolerating. (6) Asystole Current Visit: Yes Status: Acute Priority: Medium Code(s): I46.9 - CARDIAC ARREST, CAUSE UNSPECIFIED SNOMED Code(s): 071838935 Comment: -Will discuss permanent pacemaker with daughter and patient later today. Status and Disposition: Inpatient/ICU
--- NOTE | 2019-07-22 17:11 | PN ---
Progress Note - Progress Note Date of Service: 07/22/19 Note: Family Consultation Note: Spoke with patient and daughter re depression and decision-making re permanent pacemaker. He understands risks and benefits of pacemaker. Daughter will discuss with him overnight. I encouraged him to decide by tomorrow.
[2019-07-22] MEDS: Acetaminophen TAB* 325 MG PO PRN (17:33)
[2019-07-23] MEDS: HYDROcodone/ACETAMIN 5-325 MG* 1 TAB PO PRN ×3 (03:39→20:13)
[2019-07-23 05:23] LABS: BUN/Creatinine Ratio 14.6 (8-20); Calcium 8.1 mg/dL (8.6-10.3); EGFR African American 49.2 (>60); EGFR Non-African American 40.6 (>60); Potassium 4.3 mmol/L (3.5-5.0)
[2019-07-23] MEDS: Heparin VIAL(*) 5000 UNITS/ML VIAL (FIVE THOUSAND) SUBCUT SCH ×3 (05:49→20:06)
[2019-07-23 08:27] LABS: Activated Partial Thrombo Time 39.3 seconds (26.0-38.0); INR 0.97 (0.82-1.09)
[2019-07-23] MEDS: Insulin LISPRO* 1 UNITS UNIT SUBCUT SCH ×3 (08:27→17:44)
[2019-07-23] MEDS: Docusate CAP* 100 MG PO SCH ×2 (08:42→19:59)
[2019-07-23] MEDS: Famotidine TAB* 20 MG PO SCH (08:43)
[2019-07-23] MEDS: Sertraline* 25 MG TAB PO SCH (08:43)
[2019-07-23] MEDS ORDERED: Sertraline* 25 MG TAB PO ONE (09:27)
--- NOTE | 2019-07-23 09:27 | PN ---
Subjective Date of Service: 07/23/19 Interval History: Patient has no new complaints. Denies chest pain, dizziness, palpitations. He has a small sacral pressure ulcer, declines turning over to show me. Family History: Unchanged from Admission Social History: Unchanged from Admission Past Medical History: Unchanged from Admission Objective Active Medications: Acetaminophen (Tylenol Tab*) 650 mg PO Q4H PRN PRN Reason: PAIN - MILD Last Admin: 07/22/19 17:33 Dose: 650 mg Hydrocodone Bitart/Acetaminophen ([place] 5-325 Tab*) 1 tab PO Q6H PRN PRN Reason: PAIN - MODERATE Last Admin: 07/22/19 15:24 Dose: 1 tab Hydrocodone Bitart/Acetaminophen ([place] 5-325 Tab*) 2 tab PO Q6H PRN PRN Reason: PAIN - SEVERE Last Admin: 07/23/19 03:39 Dose: 2 tab Cefuroxime Axetil (Ceftin Tab(*)) 250 mg PO BID [facility] Stop: 07/25/19 21:01 Last Admin: 07/23/19 08:42 Dose: 250 mg Dextrose (Dextrose 50% Vial 50 Ml*) 25 ml IV PUSH .FOR FS < 60 - SS PRN PRN Reason: FS < 60 Docusate Sodium (Colace Cap*) 100 mg PO BID [facility] Last Admin: 07/23/19 08:42 Dose: 100 mg Famotidine (Pepcid Tab*) 20 mg PO DAILY [facility] Last Admin: 07/23/19 08:43 Dose: 20 mg Heparin Sodium (Porcine) (Heparin Vial(*)) 5,000 units SUBCUT Q8HR [facility] Last Admin: 07/23/19 05:49 Dose: 5,000 units Insulin Human Lispro (Humalog*) 0 units SUBCUT AC [facility]; Protocol Last Admin: 07/23/19 08:27 Dose: Not Given Ondansetron HCl (Zofran Inj*) 4 mg IV Q6H PRN PRN Reason: NAUSEA Last Admin: 07/20/19 10:52 Dose: 4 mg Polyethylene Glycol/Electrolytes (Miralax*) 17 gm PO DAILY PRN PRN Reason: CONSTIPATION Senna (Senokot 8.6 Mg Tab*) 1 tab PO BEDTIME PRN PRN Reason: CONSTIPATION Sertraline HCl (Zoloft*) 25 mg PO DAILY [facility] Last Admin: 07/23/19 08:43 Dose: 25 mg Vital Signs - 8 hr 07/23/19 07/23/19 07/23/19 01:30 02:00 02:30 Temperature Pulse Rate 75 73 84 Respiratory 18 26 28 Rate Blood Pressure 129/78 133/69 124/74 (mmHg) O2 Sat by Pulse 95 95 96 Oximetry 07/23/19 07/23/19 07/23/19 03:00 03:41 04:00 Temperature 37.3 C Pulse Rate 72 79 72 Respiratory 20 27 19 Rate Blood Pressure 133/72 125/69 111/60 (mmHg) O2 Sat by Pulse 96 96 94 Oximetry 07/23/19 08:00 Temperature Pulse Rate 66 Respiratory 15 Rate Blood Pressure 128/75 (mmHg) O2 Sat by Pulse 96 Oximetry Oxygen Devices in Use Now: None Appearance: alert, no distress Ears/Nose/Mouth/Throat: Clear Oropharnyx Respiratory: Symmetrical Chest Expansion and Respiratory Effort, Clear to Auscultation Cardiovascular: NL Sounds; No Murmurs; No JVD, RRR Neurological: Alert and Oriented x 3 Lines/Tubes/Other Access: Clean, Dry and Intact Peripheral IV Nutrition: Taking PO's Result Diagrams: 07/22/19 05:04 07/23/19 04:58 Assess/Plan/Problems-Billing Assessment: Mr Hendricks is an 79 yo M with PMH of systolic CHF EF<20%, prostate CA (Low Sushma , watchful waiting), GERD, COPD, nephrolithiasis, HTN, DM, HLD, who presented to ED with c/o weakness, N/V; admitted to ICU with hyponatremia, new onset AF, acute on chronic renal failure, UTI, thought related to depression associated with of multiple family members. - Patient Problems (1) Paroxysmal atrial fibrillation Current Visit: Yes Status: Acute Priority: High Code(s): I48.0 - PAROXYSMAL ATRIAL FIBRILLATION SNOMED Code(s): 248658757 Comment: - Remains in NSR, anticoagulation not indicated because episode was brief. - Off rate control due to pauses (2) Acute kidney injury superimposed on chronic kidney disease Current Visit: Yes Status: Acute Priority: Medium Code(s): N17.9 - ACUTE KIDNEY FAILURE, UNSPECIFIED; N18.9 - CHRONIC KIDNEY DISEASE, UNSPECIFIED SNOMED Code(s): 10303102 Comment: - Creatinine at baseline (3) E. coli UTI (urinary tract infection) Current Visit: Yes Status: Acute Priority: Medium Code(s): N39.0 - URINARY TRACT INFECTION, SITE NOT SPECIFIED; B96.20 - UNSP ESCHERICHIA COLI THE CAUSE OF DISEASES CLASSD [facility] SNOMED Code(s): 222968809 Comment: - doing well on PO Ceftin. (4) DVT prophylaxis Current Visit: Yes Status: Chronic Priority: Low Code(s): YDO6890 - SNOMED Code(s): 526085076 Comment: - SQ heparin. (5) Depression Current Visit: Yes Status: Acute Priority: Medium Code(s): F32.9 - MAJOR DEPRESSIVE DISORDER, SINGLE EPISODE, UNSPECIFIED SNOMED Code(s): 98230200 Comment: - Continue Sertraline, will increase today (6) Asystole Current Visit: Yes Status: Acute Priority: Medium Code(s): I46.9 - CARDIAC ARREST, CAUSE UNSPECIFIED SNOMED Code(s): 776934157 Comment: -Patient agrees to have pacemaker placed. Message sent to Dr. Estrella. Status and Disposition: Inpatient/ICU
--- NOTE | 2019-07-23 09:53 | CONSULT ---
<Beena Tran - Last Filed: 07/23/19 10:00> Cardiology Note Primary team notified. <Jus Estrella - Last Filed: 07/23/19 11:58> Cardiology Note Patient states he is now agreeable to being transferred to outlying facility for biventricular pace maker. he is still undecided if he will get ICD portion. He is asking to wait until his daughter comes before deciding. He states if he had a decision he would like to have this done at [facility] the closest facility that offers BiV PPM. Hospitalist notified. Patient is aware that before he is implanted he would need to make a decision about ICD. He verbalized an understanding. Dr. Estrella updated. 07.23.2019 11:56 am: above d/w FINGER LIFT OPERATOR Moses Tran. D/w pt he wants to discuss with his daughter again if he wants to have pacer done.
[2019-07-24] MEDS: Acetaminophen TAB* 325 MG PO PRN (01:10)
[2019-07-24] MEDS: Heparin VIAL(*) 5000 UNITS/ML VIAL (FIVE THOUSAND) SUBCUT SCH ×2 (05:25→13:23)
[2019-07-24] MEDS: Famotidine TAB* 20 MG PO SCH (08:15)
[2019-07-24] MEDS: Insulin LISPRO* 1 UNITS UNIT SUBCUT SCH ×2 (08:15→13:23)
[2019-07-24] MEDS: Docusate CAP* 100 MG PO SCH (08:15)
[2019-07-24] MEDS: HYDROcodone/ACETAMIN 5-325 MG* 1 TAB PO PRN (08:15)
[2019-07-24] MEDS ORDERED: Sertraline* 25 MG TAB PO SCH (09:00)
--- NOTE | 2019-07-24 11:05 | PN ---
Subjective Date of Service: 07/24/19 Interval History: Patient has some mild abdominal discomfort. He denies palpitations, dizziness, chest pain. He is aware that cardiology is recommending BiV pacer, but he wants this discussed with daughter as well, who is coming in later. Overnight nursing has seen sinus tachycardia up to 140, no symptoms. Family History: Unchanged from Admission Social History: Unchanged from Admission Past Medical History: Unchanged from Admission Objective Active Medications: Acetaminophen (Tylenol Tab*) 650 mg PO Q4H PRN PRN Reason: PAIN - MILD Last Admin: 07/24/19 01:10 Dose: 650 mg Hydrocodone Bitart/Acetaminophen ([place] 5-325 Tab*) 1 tab PO Q6H PRN PRN Reason: PAIN - MODERATE Last Admin: 07/24/19 08:15 Dose: 1 tab Hydrocodone Bitart/Acetaminophen ([place] 5-325 Tab*) 2 tab PO Q6H PRN PRN Reason: PAIN - SEVERE Last Admin: 07/23/19 11:37 Dose: 2 tab Cefuroxime Axetil (Ceftin Tab(*)) 250 mg PO BID [facility] Stop: 07/25/19 21:01 Last Admin: 07/24/19 08:16 Dose: 250 mg Dextrose (Dextrose 50% Vial 50 Ml*) 25 ml IV PUSH .FOR FS < 60 - SS PRN PRN Reason: FS < 60 Docusate Sodium (Colace Cap*) 100 mg PO BID [facility] Last Admin: 07/24/19 08:15 Dose: 100 mg Famotidine (Pepcid Tab*) 20 mg PO DAILY [facility] Last Admin: 07/24/19 08:15 Dose: 20 mg Heparin Sodium (Porcine) (Heparin Vial(*)) 5,000 units SUBCUT Q8HR [facility] Last Admin: 07/24/19 05:25 Dose: 5,000 units Insulin Human Lispro (Humalog*) 0 units SUBCUT AC [facility]; Protocol Last Admin: 07/24/19 08:15 Dose: Not Given Ondansetron HCl (Zofran Inj*) 4 mg IV Q6H PRN PRN Reason: NAUSEA Last Admin: 07/20/19 10:52 Dose: 4 mg Polyethylene Glycol/Electrolytes (Miralax*) 17 gm PO DAILY PRN PRN Reason: CONSTIPATION Senna (Senokot 8.6 Mg Tab*) 1 tab PO BEDTIME PRN PRN Reason: CONSTIPATION Sertraline HCl (Zoloft*) 50 mg PO DAILY [facility] Last Admin: 07/24/19 08:15 Dose: 50 mg Vital Signs - 8 hr 07/24/19 07/24/19 07/24/19 04:56 05:00 05:30 Temperature Pulse Rate 76 81 Respiratory 17 19 21 Rate Blood Pressure 140/78 132/81 (mmHg) O2 Sat by Pulse 96 95 Oximetry 07/24/19 07/24/19 07/24/19 06:00 06:30 07:00 Temperature Pulse Rate 92 74 64 Respiratory 21 21 23 Rate Blood Pressure 127/67 125/62 139/50 (mmHg) O2 Sat by Pulse 94 96 96 Oximetry 07/24/19 07/24/19 07/24/19 09:00 09:30 10:00 Temperature Pulse Rate 77 79 87 Respiratory 19 20 18 Rate Blood Pressure 143/81 125/72 130/66 (mmHg) O2 Sat by Pulse 96 94 95 Oximetry Oxygen Devices in Use Now: None Appearance: alert, no distress Ears/Nose/Mouth/Throat: Clear Oropharnyx Respiratory: Symmetrical Chest Expansion and Respiratory Effort, Clear to Auscultation Cardiovascular: NL Sounds; No Murmurs; No JVD, RRR Abdominal: NL Sounds; No Tenderness; No Distention Neurological: Alert and Oriented x 3 Lines/Tubes/Other Access: Clean, Dry and Intact Peripheral IV Nutrition: Taking PO's Result Diagrams: 07/22/19 05:04 07/23/19 04:58 Assess/Plan/Problems-Billing Assessment: Mr Hendricks is an 79 yo M with PMH of systolic CHF EF<20%, prostate CA (Low [place] , watchful waiting), GERD, COPD, nephrolithiasis, HTN, DM, HLD, who presented to ED with c/o weakness, N/V; admitted to ICU with hyponatremia, new onset AF, acute on chronic renal failure, UTI, thought related to depression associated with of multiple family members. - Patient Problems (1) Paroxysmal atrial fibrillation Current Visit: Yes Status: Acute Priority: High Code(s): I48.0 - PAROXYSMAL ATRIAL FIBRILLATION SNOMED Code(s): 574852168 Comment: - Remains in NSR, anticoagulation not indicated because episode was brief. - Off rate control due to pauses (2) Acute kidney injury superimposed on chronic kidney disease Current Visit: Yes Status: Resolved Priority: Medium Code(s): N17.9 - ACUTE KIDNEY FAILURE, UNSPECIFIED; N18.9 - CHRONIC KIDNEY DISEASE, UNSPECIFIED SNOMED Code(s): 17717924 Comment: - Creatinine at baseline (3) E. coli UTI (urinary tract infection) Current Visit: Yes Status: Acute Priority: Medium Code(s): N39.0 - URINARY TRACT INFECTION, SITE NOT SPECIFIED; B96.20 - UNSP ESCHERICHIA COLI THE CAUSE OF DISEASES CLASSD [facility] SNOMED Code(s): 703671675 Comment: - doing well on PO Ceftin. - Will stop tomorrow, course completed (4) DVT prophylaxis Current Visit: Yes Status: Chronic Priority: Low Code(s): XOZ2910 - SNOMED Code(s): 004892970 Comment: - SQ heparin. (5) Depression Current Visit: Yes Status: Acute Priority: Medium Code(s): F32.9 - MAJOR DEPRESSIVE DISORDER, SINGLE EPISODE, UNSPECIFIED SNOMED Code(s): 97146378 Comment: - Continue Sertraline, will take a few weeks to begin to be helpful. (6) Asystole Current Visit: Yes Status: Resolved Priority: Medium Code(s): I46.9 - CARDIAC ARREST, CAUSE UNSPECIFIED SNOMED Code(s): 365767138 Comment: -Patient will discuss this with daughter, hospital team, make decision. -Potential transfer to [facility] later today. Status and Disposition: Inpatient/ICU
[2019-07-24 16:13] VITALS: BP 117/68
--- NOTE | 2019-07-24 17:07 | TRS ---
CC: Dr. Chaney; Dr. Block TRANSFER SUMMARY: DATE OF ADMISSION: 07/16/19 DATE OF TRANSFER: 07/24/19 ACCEPTING PHYSICIAN: Dr. Jones, Cardiology, [facility]. PRIMARY DIAGNOSIS: Sinus asystole with up to 6 seconds pauses, slow idioventricular escape rhythm. SECONDARY DIAGNOSES: 1. Nonischemic cardiomyopathy, last ejection fraction 15% on echocardiogram in 2009, left bundle bra nch block. 2. Paroxysmal atrial fibrillation. 3. Reactive depression ( 7 months ago). 4. Prostate cancer, low [place] score, watchful waiting. 5. Gastroesophageal reflux disease. 6. Chronic obstructive pulmonary disease. 7. History of tobacco abuse, quit smoking in 1989. 8. Nephrolithiasis. 9. Hypertension. 10. Type 2 diabetes. 11. Hyperlipidemia. 12. Chronic kidney disease. 13. Urinary tract infection, E. coli pansensitive. MEDICATIONS ON TIME OF TRANSFER: 1. Acetaminophen 650 mg p.o. q.4 hours p.r.n. 2. Cefuroxime 250 mg p.o. b.i.d. for 2 more days. 3. D50 one half amp IV as needed for hypoglycemia. 4. Docusate 100 mg p.o. b.i.d. 5. Famotidine 20 mg p.o. daily. 6. Heparin 5000 units subcutaneous q.8 hours. 7. Hydrocodone/acetaminophen 1 tab p.o. q.6 hours p.r.n. moderate pain. 8. Hydrocodone/acetaminophen 2 tabs p.o. q.6 hours p.r.n. severe pain. 9. Insulin lispro sliding scale. 10. Ondansetron 4 mg IV q.6 hours p.r.n. nausea. 11. MiraLAX 17 g, mix with water daily as needed for constipation. 12. Senna 8.6 mg p.o. at bedtime p.r.n. constipation. 13. Zoloft 50 mg p.o. daily. CONSULTATIONS: Dr. Choi of Cardiology with followup from Dr. Loving and Dr. Estrella. PROCEDURES: None. HOSPITAL COURSE: An 79-year-old man with history of nonischemic cardiomyopathy presented through the emergency department with generalized weakness, nausea and vomiting. He was found to have hyponatre chace with a sodium of 118 as well as a leukocytosis. He was thought to have hypovolemic hyponatremia and was treated with fluid resuscitation, lactated Ringer's. His sodium yvonne from 118 on the day of admission to 130 on the day after admission and is 135 on the day of transfer. He did not require an y hypertonic saline. The etiology of his dehydration and leukocytosis appeared to be some lack of se lf care due to depression as well as his UTI. Shortly after his admission to the ICU for hyponatremi a, he converted from normal sinus rhythm to a rapid atrial fibrillation with wide complex beats due t o left bundle branch block. The patient was managed with rate control and he was in AFib for less th an 24 hours. He did not require anticoagulation. The patient also presented with a creatinine of 3. 79 which fell back to his baseline of 1.64 with fluid resuscitation. He was thought to have acute on chronic kidney disease, acute renal insufficiency on top of chronic kidney disease. The patient improved and was moved from the ICU to the telemetry floor. However, on 07/21/19, the ulisses mckay had episode of sinus pause and ventricular escape rhythm on telemetry with symptoms of dizzines s. The patient at that point was on metoprolol 12.5 mg p.o. b.i.d. for rate control. This was stopp ed and Cardiology was reconsulted. Dr. Loving clearly stated that the patient has an ejection fract ion around 15% and requires pacemaker with biventricular functions for cardiac resynchronization. Co nsideration should be given to place an AICD as well given his low EF and left bundle branch block. The patient was transferred back to the ICU after the sinus pauses and placed on a transcutaneous pac emaker, which never needed to be used. He had episodes of PVCs and some sinus tachycardia in the int ensive care unit, but no significant sinus pauses. The patient on admission also had a urinalysis which showed 3+ blood, 2+ protein, 2+ leukocyte estera se, 3+ white cells. Urine culture showed E. Coli which was pansensitive. He was initially treated w ith ceftriaxone and switched to oral cefuroxime. He should finish another 2 days of this before it s topped. For his depression, we discussed the recent of his and his difficulties in making decision s on his own and difficulty taking care of himself. Social work also had discussions with the patien t for counseling purposes. He was started on sertraline 25 mg daily, which was titrated up to 50 mg after 2 days while he was tolerating the medication well. Further psychiatric referral as an outpati ent would be indicated on discharge. Other laboratory abnormalities of note. The patient was admitted with a white count of 16.3 which fe ll to 8.4 the day prior to discharge. His hematocrit has fallen from 41 to [address] and his platelets have fell from 671,000 down to 283,000. His initial blood gas showed pH 7.32, p CO2 of 22, pO2 of 110 and bicarbonate of 15 consistent with a metabolic acidosis with some partial re spiratory compensation. 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 His initial troponins were 0.07 and this yvonne to 0.19 and fell to 0.15 on the first 24 hours of adm ission. His mild troponin leak is likely due to demand ischemia. His anemia was worked up with iron studies, iron with level of 70, TIBC of 154, ferritin 526, this is consistent with anemia of chronic disease. His diabetes was reasonably well controlled with sliding scale insulin. He has had fingersticks betw een 132 and 226 in the last 24 hours. He has not required any long acting insulin. CONDITION: Guarded. STATUS: Inpatient. DIET: Should be cardiac heart healthy diet. ACTIVITY: Would be out of bed to chair with assistance. DISCHARGE DISPOSITION: To [facility] for a consultation with Electrophysiology, Cardiolo gy with eye towards biventricular pacer versus AICD. TIME SPENT: I spent more than 1 hour with the patient's family and finishing necessary paperwork on the day of transfer. [id number]/[facility] #: [id number]
== END 2019-07-24 16:00 | disposition short-term general hospital (02) | DRG 683 ==
LOC: ED 10:40 → ICU 13:30 → MEDTELE 07-18 10:20 → ICU 07-21 14:31
PROVIDERS: ADMIT Internal Medicine; ATTEND Internal Medicine
PROC: 5A1223Z Performance of Cardiac Pacing, Continuous (ICD-10-PCS; principal; 2019-07-16)
DX: N17.9 Acute kidney failure, unspecified (principal); I44.2 Atrioventricular block, complete; E87.1 Hypo-osmolality and hyponatremia; I50.22 Chronic systolic (congestive) heart failure; N39.0 Urinary tract infection, site not specified; I13.0 Hypertensive heart and chronic kidney disease with heart failure and stage 1 through stage 4 chronic kidney disease, or unspecified chronic kidney disease; E87.2 Acidosis; I42.8 Other cardiomyopathies; E86.0 Dehydration; I48.0 Paroxysmal atrial fibrillation; C61 Malignant neoplasm of prostate; K21.9 Gastro-esophageal reflux disease without esophagitis; J44.9 Chronic obstructive pulmonary disease, unspecified; E78.5 Hyperlipidemia, unspecified; E11.22 Type 2 diabetes mellitus with diabetic chronic kidney disease; I49.3 Ventricular premature depolarization; D63.1 Anemia in chronic kidney disease; E86.1 Hypovolemia; D72.829 Elevated white blood cell count, unspecified; E11.65 Type 2 diabetes mellitus with hyperglycemia; R74.8 Abnormal levels of other serum enzymes; N18.9 Chronic kidney disease, unspecified; B96.20 Unspecified Escherichia coli [E. coli] as the cause of diseases classified elsewhere; L89.159 Pressure ulcer of sacral region, unspecified stage; F32.9 Major depressive disorder, single episode, unspecified; I44.7 Left bundle-branch block, unspecified; D50.9 Iron deficiency anemia, unspecified; Z87.891 Personal history of nicotine dependence; Z87.442 Personal history of urinary calculi; Z91.14 Patient's other noncompliance with medication regimen; Z72.89 Other problems related to lifestyle; Z79.01 Long term (current) use of anticoagulants; Z79.4 Long term (current) use of insulin
CPT/HCPCS: 36415; 36600; 70450; 71045; 80048; 80053; 81003; 81015; 82607; 82728; 82803; 83540; 83550; 83605; 83735; 83880; 83930; 84100; 84425; 84443; 84484; 85025; 85610; 85730; 87077; 87086; 87186; 87641; 93005; 99284; A9270-GY; G8978-GP-CJ; G8979-GP-CI; J0153; J0696; J0780; J1160; J1644; J2405; J2765